=== PATIENT | male | born 1980 | race Caucasian/White ===

== ENCOUNTER 2017-01-12 21:50 | Emergency (ER) | payer SELFPAY ==
--- NOTE | 2017-01-13 00:07 | ED CLINICAL REPORT ---
Clinical Report - Physicians/Mid Levels Merg[facility] With [facility] [address] [place] [address] 01/12/2017 21:51 Patient: LISA ARELLANO Time Seen: 21:58; initial patient contact. Arrived- By private vehicle. Historian- patient. HISTORY OF PRESENT ILLNESS Chief Complaint: "GOT THE SHAKES". Wants to stop drinking. Wants to enter detox program. Symptoms started today. Duration of substance abuse- about 3 months. Substances abused: Alcohol. Last drink consisted of beer. (about 9 hours ago). No nausea, vomiting, diarrhea, abdominal pain or seizure. No agitation, delusions, hallucinations or suicidal thoughts. He has had tremors and been depressed. Not confused. The symptoms are described as moderate. No injuries noted. Similar symptoms previously: None. Recent medical care: Not recently seen/assessed. REVIEW OF SYSTEMS No headache, dizziness, chest pain or palpitations. All systems otherwise negative, except as recorded above. PAST HISTORY Alcoholism. SURGERIES: Rotator Cuff Surgery. SOCIAL HISTORY Former smoker. Heavy alcohol use. Patient is alcoholic. No drug use. Has social support. Has place to stay. ADDITIONAL NOTES The nursing notes have been reviewed. PHYSICAL EXAM Vital Signs: 01/12/2017 21:58 BP: 177/98. HR: 123. RR: 20. O2 saturation: 96%. Temp: 98.8 F. Pain level now: 0/10. Have been reviewed. Hypertensive. Tachycardic. Respiratory rate normal. Temperature normal. Oxygen saturation normal. Appearance: Alert. Oriented X3. Patient in mild distress. Head: Head atraumatic. ENT: Airway intact. Dry mucous membranes present. Neck: Normal inspection. CVS: Tachycardia. Heart sounds normal. Rhythm normal. Respiratory: No respiratory distress. Breath sounds normal. Abdomen: Soft and nontender. No organomegaly. Skin: Skin warm and dry. Normal skin color. No rash. Extremities: No lower extremity edema. Neuro: Alert. Oriented X 3. Mood/affect normal. Speech normal. (Tremor noted). LABS, X-RAYS, AND EKG Laboratory Tests: CBC w Diff: (SANDY: 01/12/2017 22:07) ( MsgRcvd 01/12/2017 22:31) Final results Test Result Flag Units (Reference) WHITE BLOOD COUNT 9.8 K/uL (4.5-11.5) RED BLOOD COUNT 5.14 M/uL (4.50-5.90) HEMOGLOBIN 15.3 gm/dL (13.5-17.5) HEMATOCRIT 45.3 % (41.0-53.0) MEAN CELL VOLUME 88 fL (80-100) MEAN CORPUSCULAR HGB 30 pg (26-34) MEAN CORPUSCULAR HGB CONC 34 g/dL (31-37) RED CELL DISTRIBUTION WIDTH 15.4 H % (11.6-14.8) PLATELET COUNT 329 K/uL (150-400) NEUTROPHIL % 64.7 % (50-75) LYMPH % 23.1 L % (25-40) MONO % 11.8 % (3-14) EOSINOPHIL % 0.1 % (0-4) BASOPHIL % 0.3 % (0-2) CMP: (SANDY: 01/12/2017 22:07) ( MsgRcvd 01/12/2017 22:36) Final results Test Result Flag Units (Reference) GLUCOSE 129 H mg/dL (70-110) BUN 10 mg/dL (7-18) CREATININE 0.8 mg/dL (0.6-1.3) Estimated GFR >60 mL/min Estimated GFR- >60 mL/min Note: Persistent reduction over 3 months in eGFR<60 mL/min/1.73 m2 defines CKD. Patients with eGFR values>=60 mL/min/1.73 m2 may also have CKD if evidence ofpersistent proteinuria. Additional information may be foundat [email or web address].org. SODIUM 136 mmol/L (136-145) POTASSIUM 3.4 L mmol/L (3.5-5.1) CHLORIDE 98 mmol/L (98-107) CARBON DIOXIDE 28 mmol/L (21-32) CALCIUM 8.9 mg/dL (8.5-10.1) TOTAL PROTEIN 8.2 g/dL (6.4-8.2) ALBUMIN 3.9 g/dL (3.3-5.0) BILIRUBIN, TOTAL 1.1 H mg/dL (0.0-1.0) ALKALINE PHOSPHATASE 87 U/L (46-116) AST (SGOT) 48 H U/L (15-37) ALT (SGPT) 43 U/L (12-78) . PROGRESS AND PROCEDURES Course of Care: Ativan. Evaluation after repeat exam, IV fluids and thiamine. Physical exam findings are improved. Symptoms much better. Disposition: Discharged home in good and improved condition. Condition: good. CLINICAL IMPRESSION Alcohol withdrawal. No irritability, agitation, confusion, delirium or hallucinations. No seizures or delirium tremens. INSTRUCTIONS No alcohol. Seek medical help to quit drinking. Prescription Medications: Librium 25 mg: take 1-2 orally every 6 hours as needed for anxiety. Dispense thirty (30). No refill. Substitution is permissible. Follow-up: Follow up with your doctor in two days. Call for an appointment. Screening today revealed the patient's blood pressure to be in the hypertensive range. The patient should follow up with a primary care provider for blood pressure management. (Electronically signed by Pollo Beltrán Dr. 01/13/2017 0:11)
--- NOTE | 2017-01-13 00:08 | ED NURSING NOTES ---
Clinical Report - Nurses [facility] [address] [place] [address] 01/12/2017 21:51 Patient: LISA ARELLANO TRIAGE Triage time 21:59 Jan 12 2017. Acuity: LEVEL 2. Chief Complaint: (DETOX/WITHDRAWL FROM ALCOHOL). 21:59 01/12/17. SEPSIS SCREEN: Sepsis Screen. Negative (no infection suspected/documented). HIREN COMA SCORE: Sparks Coma Scale: 15- eyes open spontaneously (4); best verbal response- oriented x 4 (5); best motor response- obeys commands (6). --22:04 Dayanara Culver R.N. 21:58 01/12/17. BP: 177/98. HR: 123. RR: 20. O2 saturation: 96%. Temp: 98.8 F. Pain level now: 0/10. --22:04 Dayanara Culver R.N. Weight: 95.2 kg. Height/Length: 70 inches. BMI: 30.1. --21:58 Dayanara Culver R.N. Medications None. --21:59 Dayanara Culver R.N. Allergies Flu Virus Vaccine. --21:59 Dayanara Culver R.N. Medication/allergy information source: the patient. --22:04 Dayanara Culver R.N. History Arrived by private vehicle. Historian: patient. Accompanied by friend. ( STATES BEEN DRINKING BEER HEAVILY, MORE THAN 30 PER DAY FOR THE LAST 3 MONTHS. LAST DRINK WAS AT 1400 TODAY. WAS DRINKING HEAVILY UNTIL THEN. SIGNIFICANT HAND TREMOR PRESENT. STATES WANTS HELP TO STOP DRINKING.). Treatment TAG METER OPERATOR: None. SOCIAL HX: Former smoker (QUIT 1 YEAR AGO). Heavy alcohol use; consumes a large amount of beer daily. (STATES DRINKS MORE THAN 30 BEERS PER DAY). No drug use. No infectious disease exposure. ABUSE ASSESSMENT: No report of abuse. SELF HARM ASSESSMENT: A self harm assessment was performed. The patient answered "yes" to the question "Have you recently felt down, depressed, or hopeless?" and "no" to the question "Have you noticed less interest or pleasure in doing things?", "Do you have thoughts of harming or killing yourself?", "Are you here because you tried to hurt yourself?", "Have you ever tried to hurt yourself before today?", "Have you recently had thoughts about harming or killing others?" and "Do you have any dangerous items in your possession?". NUTRITIONAL RISK ASSESSMENT: The nutritional risk assessment revealed no deficiencies. FUNCTIONAL ASSESSMENT: Functional assessment: no impairments noted. LEARNING NEEDS ASSESSMENT: The learning needs assessment revealed no barriers. SKIN INTEGRITY ASSESSMENT: Skin integrity risk assessment completed. No skin integrity risk identified. --22:04 Dayanara Culver R.N. PROBLEMS: Alcoholism. --22:00 Dayanara Culver R.N. ADDITIONAL SURGERIES: Rotator Cuff Surgery. --22:00 Dayanara Culver R.N. Interventions ID band on patient. --22:04 Dayanara Culver R.N. PHYSICAL ASSESSMENT 23:00 01/12/17. Ambulatory to room. GENERAL / NEURO / PSYCH: Alert. Oriented X 4. Appears in pain. Normal gait. HEENT: Pupils equal, round and reactive to light. No facial asymmetry noted. Mucous membranes are pink. RESPIRATORY: Respirations not labored. Breath sounds within normal limits. CVS: Cardiac rhythm: sinus tachycardia. Capillary refill less than 2 seconds. GI / : Abdomen soft and nontender. SKIN: Skin intact. Skin is warm. Skin is slightly diaphoretic. Normal skin turgor. --00:22 Dayanara Culver R.N. NURSING PROGRESS NOTES 22:01/12/2017 Site #1 started via IV in the left antecubital space with an 20g angiocath, with aseptic technique and good blood return; one attempt. Blood drawn: rainbow set. Labeled in the presence of the patient and sent to the lab. Saline lock flushed with 10 mL saline. --22:06 Dayanraa Culver R.N. 22:01/12/17. BP: 181/100. HR: 117. --22:06 Dayanara Culver R.N. 22:01/12/17. Cardiac rhythm: sinus tachycardia. The initial plan of care for this patient includes an assessment with efforts to address the patient's anxiety and fear; the presence of pain; impairment of the genitourinary and neurological system; hydration needs; educational needs of the patient regarding the patient's medications and disease process and available services and resources. This plan of care was discussed with the patient. physical laboratory assistant, pulse oximeter and NIBP monitor placed on patient; cardiac cath rn- Lead II; monitor alarms on. Patient gowned. Two patient identifiers checked. Call light placed in reach. Side rails up x 2. Bed placed in lowest position. Brakes of bed on. Patient ready for evaluation. --22:06 Dayanara Culver R.N. ( BREATHALYZER TEST GIVEN .000). --22:16 Andrea Jimenez 22:01/12/2017 Started bag #1 1000 mL IV Fluids IV NS (Saline); at 1000 mL/hr over 1 hour(s) via site #1 via IV pump. Allergies verified and confirmed 5 rights. IV patency established. IV site checked: no pain, redness, or swelling. IV flushed thoroughly pre- and post-medication administration. --22:29 Dayanara Culver R.N. 22:01/12/2017 Thiamine (Vitamin B-1) IVP 100 mg given over 1 hour(s) via site #1. Allergies verified and confirmed 5 rights. IV patency established. IV site checked: no pain, redness, or swelling. IV flushed thoroughly pre- and post-medication administration. IVP given by RN. --22:29 Dayanara Culver R.N. <<STRICKEN ENTRY-- :01/12/2017 Started 1 mg of Folic Acid IVPB in bag #1 100 mL; at 1000 mL/hr over 1 hour(s) via site #1; (1 mg (0.2 ml) added to IV Liter NSS). --22:31 Dayanara Culver R.N. --END STRIKE>> Change to Details. --22:33 Dayanara Culver R.N. <<STRICKEN ENTRY-- 22:01/12/2017 Started 10 mL of Multivitamin IVPB in bag #1 1000 mL; at 1000 mL/hr over 1 hour(s) via site #1; Allergies verified and confirmed 5 rights. IV patency established. IV site checked: no pain, redness, or swelling. IV flushed thoroughly pre- and post-medication administration. --22:32 Dayanara Culver R.N. --END STRIKE>> Correction. --22:33 Dayanara Culver R.N. 22:01/12/2017 Started 10 mL of Multivitamin IVPB in bag #1 10 mL; at 1000 mL/hr over 1 hour(s) via site #1; Allergies verified and confirmed 5 rights. IV patency established. IV site checked: no pain, redness, or swelling. IV flushed thoroughly pre- and post-medication administration. --22:33 Dayanara Culver R.N. 22:01/12/2017 Started 1 mg of Folic Acid IVPB in bag #1 1 mL; at 1000 mL/hr over 1 hour(s) via site #1; (1 mg (0.2 ml) added to IV Liter NSS). --22:33 Dayanara Culver R.N. 22:30 01/12/2017 Ativan (LORazepam) IVP 1 mg given over 1 minute(s) via site #1. Allergies verified, confirmed 5 rights and sedative warning given to the patient. IV patency established. IV site checked: no pain, redness, or swelling. IV flushed thoroughly pre- and post-medication administration. IVP given by RN. --22:32 Dayanara Culver R.N. 22:47 01/12/17. Cardiac rhythm: sinus tachycardia. Reassessment after fluids administered and medication administered. He has had no adverse reaction. Overall patient status is the same- he states feels the same. --22:47 Dayanara Culver R.N. 22:47 01/12/17. BP: 188/95. HR: 110. RR: 20. O2 saturation: 95%. Pain level now 0/10. --22:47 Dayanara Culver R.N. 22:57 01/12/2017 Ativan (LORazepam) IVP 1 mg given over 1 minute(s) via site #1. Allergies verified, confirmed 5 rights and sedative warning given to the patient. IV patency established. IV site checked: no pain, redness, or swelling. IV flushed thoroughly pre- and post-medication administration. IVP given by RN. --22:59 Dayanara Culver R.N. 23:01 01/12/17. ( Patient given sandwich, jello, crackers, sprite and gatorade). --23:01 Dayanara Culver R.N. 23:10 01/12/17. BP: 142/81. HR: 110. RR: 20. O2 saturation: 97%. Pain level now 0/10. --23:10 Dayanara Culver R.NMary 23:10 01/12/17. Cardiac rhythm: sinus tachycardia. --23:10 Dayanara Culver R.N. 23:25 01/12/2017 IV Fluids IV NS Discontinued: completed. Total amount infused: 1000 mL. IV patency established. IV site checked: no pain, redness, or swelling. IV flushed thoroughly. --23:37 Dayanara Culver R.N. 23:25 01/12/2017 Folic Acid IVPB Discontinued: completed. IV patency established. IV site checked: no pain, redness, or swelling. IV flushed thoroughly. --23:38 Dayanara Culver R.NMary 23:25 01/12/2017 Multivitamin IVPB Discontinued: completed. Total amount infused: 10 mL. --23:38 Dayanara Culver R.NMary 23:37 01/12/2017 Started bag #1 1000 mL IV Fluids IV NS (Saline); at 2000 mL/hr over 30 minute(s) via site #1. Allergies verified and confirmed 5 rights. IV patency established. IV site checked: no pain, redness, or swelling. IV flushed thoroughly pre- and post-medication administration. --23:37 Dayanara Culver R.N. 00:07 01/13/2017 IV Fluids IV NS Discontinued: bag #1 completed. Total amount infused: 1000 mL. IV patency established. IV site checked: no pain, redness, or swelling. IV flushed thoroughly. --00:18 Dayanara Culver R.N. 00:18 01/13/2017 Site #1 removed upon discharge. Catheter intact. Pressure dressing applied. --00:18 Dayanara Culver R.N. DISPOSITION / DISCHARGE 00:20 01/13/17. Cardiac rhythm: sinus tachycardia. Condition at departure: improved and stable. The goals identified in the patient's plan of care were met. No learning barriers present. Reviewed medication(s) side effects, precautions, dosing and course information. Prescription(s) given to the patient. Reviewed referral to a primary care physician, Alcoholics Anonymous and crisis hotline for followup. Summary of care provided to patient via paper. Patient verbalized understanding. Written instructions provided in French. The patient was discharged home and accompanied by vocational rehabilitation supervisor. He left the Emergency Department ambulatory and via private vehicle. Pin Feather Machine Operator driving. FALL RISK ASSESSMENT: Fall risk assessment completed. No fall risk identified. --00:20 Dayanara Culver R.N. 00:20 01/13/17. BP: 157/91. HR: 106. RR: 20. O2 saturation: 97%. Temp: 97.9 F. Pain level now 0/10. --00:20 Dayanara Culver R.N. Departure time: 00:Jan 13 2017. --00:20 Dayanara Culver R.N. Locked/Released at 01/13/2017 0:22 by Dayanara Culver R.N.
--- NOTE | 2017-01-13 00:08 | ED NURSING NOTES ---
Clinical Report - Nurses [facility] [address] [place] [address] 01/12/2017 21:51 Patient: LISA ARELLANO TRIAGE Triage time 21:59 Jan 12 2017. Acuity: LEVEL 2. Chief Complaint: (DETOX/WITHDRAWL FROM ALCOHOL). 21:59 01/12/17. SEPSIS SCREEN: Sepsis Screen. Negative (no infection suspected/documented). HIREN COMA SCORE: Sawyer Coma Scale: 15- eyes open spontaneously (4); best verbal response- oriented x 4 (5); best motor response- obeys commands (6). --22:04 Dayanara Culver R.N. 21:58 01/12/17. BP: 177/98. HR: 123. RR: 20. O2 saturation: 96%. Temp: 98.8 F. Pain level now: 0/10. --22:04 Dayanara Culver R.N. Weight: 95.2 kg. Height/Length: 70 inches. BMI: 30.1. --21:58 Dayanara Culver R.N. Medications None. --21:59 Dayanara Culver R.N. Allergies Flu Virus Vaccine. --21:59 Dayanara Culver R.N. Medication/allergy information source: the patient. --22:04 Dayanara Culver R.N. History Arrived by private vehicle. Historian: patient. Accompanied by friend. ( STATES BEEN DRINKING BEER HEAVILY, MORE THAN 30 PER DAY FOR THE LAST 3 MONTHS. LAST DRINK WAS AT 1400 TODAY. WAS DRINKING HEAVILY UNTIL THEN. SIGNIFICANT HAND TREMOR PRESENT. STATES WANTS HELP TO STOP DRINKING.). Treatment BINDER OPERATOR: None. SOCIAL HX: Former smoker (QUIT 1 YEAR AGO). Heavy alcohol use; consumes a large amount of beer daily. (STATES DRINKS MORE THAN 30 BEERS PER DAY). No drug use. No infectious disease exposure. ABUSE ASSESSMENT: No report of abuse. SELF HARM ASSESSMENT: A self harm assessment was performed. The patient answered "yes" to the question "Have you recently felt down, depressed, or hopeless?" and "no" to the question "Have you noticed less interest or pleasure in doing things?", "Do you have thoughts of harming or killing yourself?", "Are you here because you tried to hurt yourself?", "Have you ever tried to hurt yourself before today?", "Have you recently had thoughts about harming or killing others?" and "Do you have any dangerous items in your possession?". NUTRITIONAL RISK ASSESSMENT: The nutritional risk assessment revealed no deficiencies. FUNCTIONAL ASSESSMENT: Functional assessment: no impairments noted. LEARNING NEEDS ASSESSMENT: The learning needs assessment revealed no barriers. SKIN INTEGRITY ASSESSMENT: Skin integrity risk assessment completed. No skin integrity risk identified. --22:04 Dayanara Culver R.N. PROBLEMS: Alcoholism. --22:00 Dayanara Culver R.N. ADDITIONAL SURGERIES: Rotator Cuff Surgery. --22:00 Dayanara Culver R.N. Interventions ID band on patient. --22:04 Dayanara Culver R.N. PHYSICAL ASSESSMENT 23:00 01/12/17. Ambulatory to room. GENERAL / NEURO / PSYCH: Alert. Oriented X 4. Appears in pain. Normal gait. HEENT: Pupils equal, round and reactive to light. No facial asymmetry noted. Mucous membranes are pink. RESPIRATORY: Respirations not labored. Breath sounds within normal limits. CVS: Cardiac rhythm: sinus tachycardia. Capillary refill less than 2 seconds. GI / : Abdomen soft and nontender. SKIN: Skin intact. Skin is warm. Skin is slightly diaphoretic. Normal skin turgor. --00:22 Dayanara Culver R.N. NURSING PROGRESS NOTES 22:01/12/2017 Site #1 started via IV in the left antecubital space with an 20g angiocath, with aseptic technique and good blood return; one attempt. Blood drawn: rainbow set. Labeled in the presence of the patient and sent to the lab. Saline lock flushed with 10 mL saline. --22:06 Dayanara Culver R.N. 22:01/12/17. BP: 181/100. HR: 117. --22:06 Dayanara Culver R.N. 22:01/12/17. Cardiac rhythm: sinus tachycardia. The initial plan of care for this patient includes an assessment with efforts to address the patient's anxiety and fear; the presence of pain; impairment of the genitourinary and neurological system; hydration needs; educational needs of the patient regarding the patient's medications and disease process and available services and resources. This plan of care was discussed with the patient. electronic device monitor, pulse oximeter and NIBP monitor placed on patient; bus monitor- Lead II; monitor alarms on. Patient gowned. Two patient identifiers checked. Call light placed in reach. Side rails up x 2. Bed placed in lowest position. Brakes of bed on. Patient ready for evaluation. --22:06 Dayanara Culver R.N. ( BREATHALYZER TEST GIVEN .000). --22:16 Andrea Jimenez 22:01/12/2017 Started bag #1 1000 mL IV Fluids IV NS (Saline); at 1000 mL/hr over 1 hour(s) via site #1 via IV pump. Allergies verified and confirmed 5 rights. IV patency established. IV site checked: no pain, redness, or swelling. IV flushed thoroughly pre- and post-medication administration. --22:29 Dayanara Culver R.N. 22:01/12/2017 Thiamine (Vitamin B-1) IVP 100 mg given over 1 hour(s) via site #1. Allergies verified and confirmed 5 rights. IV patency established. IV site checked: no pain, redness, or swelling. IV flushed thoroughly pre- and post-medication administration. IVP given by RN. --22:29 Dayanara Culver R.N. <<STRICKEN ENTRY-- :01/12/2017 Started 1 mg of Folic Acid IVPB in bag #1 100 mL; at 1000 mL/hr over 1 hour(s) via site #1; (1 mg (0.2 ml) added to IV Liter NSS). --22:31 Dayanara Culver R.N. --END STRIKE>> Change to Details. --22:33 Dayanara Culver R.N. <<STRICKEN ENTRY-- 22:01/12/2017 Started 10 mL of Multivitamin IVPB in bag #1 1000 mL; at 1000 mL/hr over 1 hour(s) via site #1; Allergies verified and confirmed 5 rights. IV patency established. IV site checked: no pain, redness, or swelling. IV flushed thoroughly pre- and post-medication administration. --22:32 Dayanara Culver R.N. --END STRIKE>> Correction. --22:33 Dayanara Culver R.N. 22:01/12/2017 Started 10 mL of Multivitamin IVPB in bag #1 10 mL; at 1000 mL/hr over 1 hour(s) via site #1; Allergies verified and confirmed 5 rights. IV patency established. IV site checked: no pain, redness, or swelling. IV flushed thoroughly pre- and post-medication administration. --22:33 Dayanara Culver R.N. 22:01/12/2017 Started 1 mg of Folic Acid IVPB in bag #1 1 mL; at 1000 mL/hr over 1 hour(s) via site #1; (1 mg (0.2 ml) added to IV Liter NSS). --22:33 Dayanara Culver R.N. 22:30 01/12/2017 Ativan (LORazepam) IVP 1 mg given over 1 minute(s) via site #1. Allergies verified, confirmed 5 rights and sedative warning given to the patient. IV patency established. IV site checked: no pain, redness, or swelling. IV flushed thoroughly pre- and post-medication administration. IVP given by RN. --22:32 Dayanara Culver R.N. 22:47 01/12/17. Cardiac rhythm: sinus tachycardia. Reassessment after fluids administered and medication administered. He has had no adverse reaction. Overall patient status is the same- he states feels the same. --22:47 Dayanara Culver R.N. 22:47 01/12/17. BP: 188/95. HR: 110. RR: 20. O2 saturation: 95%. Pain level now 0/10. --22:47 Dayanara Culver R.N. 22:57 01/12/2017 Ativan (LORazepam) IVP 1 mg given over 1 minute(s) via site #1. Allergies verified, confirmed 5 rights and sedative warning given to the patient. IV patency established. IV site checked: no pain, redness, or swelling. IV flushed thoroughly pre- and post-medication administration. IVP given by RN. --22:59 Dayanara Culver R.N. 23:01 01/12/17. ( Patient given sandwich, jello, crackers, sprite and gatorade). --23:01 Dayanara Culver R.N. 23:10 01/12/17. BP: 142/81. HR: 110. RR: 20. O2 saturation: 97%. Pain level now 0/10. --23:10 Dayanara Culver R.NMary 23:10 01/12/17. Cardiac rhythm: sinus tachycardia. --23:10 Dayanara Culver R.N. 23:25 01/12/2017 IV Fluids IV NS Discontinued: completed. Total amount infused: 1000 mL. IV patency established. IV site checked: no pain, redness, or swelling. IV flushed thoroughly. --23:37 Dayanara Culver R.N. 23:25 01/12/2017 Folic Acid IVPB Discontinued: completed. IV patency established. IV site checked: no pain, redness, or swelling. IV flushed thoroughly. --23:38 Dayanara Culver R.NMary 23:25 01/12/2017 Multivitamin IVPB Discontinued: completed. Total amount infused: 10 mL. --23:38 Dayanara Culver R.NMary 23:37 01/12/2017 Started bag #1 1000 mL IV Fluids IV NS (Saline); at 2000 mL/hr over 30 minute(s) via site #1. Allergies verified and confirmed 5 rights. IV patency established. IV site checked: no pain, redness, or swelling. IV flushed thoroughly pre- and post-medication administration. --23:37 Dayanara Culver R.N. 00:07 01/13/2017 IV Fluids IV NS Discontinued: bag #1 completed. Total amount infused: 1000 mL. IV patency established. IV site checked: no pain, redness, or swelling. IV flushed thoroughly. --00:18 Dayanara Culver R.N. 00:18 01/13/2017 Site #1 removed upon discharge. Catheter intact. Pressure dressing applied. --00:18 Dayanara Culver R.N. DISPOSITION / DISCHARGE 00:20 01/13/17. Cardiac rhythm: sinus tachycardia. Condition at departure: improved and stable. The goals identified in the patient's plan of care were met. No learning barriers present. Reviewed medication(s) side effects, precautions, dosing and course information. Prescription(s) given to the patient. Reviewed referral to a primary care physician, Alcoholics Anonymous and crisis hotline for followup. Summary of care provided to patient via paper. Patient verbalized understanding. Written instructions provided in Malagasy. The patient was discharged home and accompanied by radio tower technician. He left the Emergency Department ambulatory and via private vehicle. Video Intern driving. FALL RISK ASSESSMENT: Fall risk assessment completed. No fall risk identified. --00:20 Dayanara Culver R.N. 00:20 01/13/17. BP: 157/91. HR: 106. RR: 20. O2 saturation: 97%. Temp: 97.9 F. Pain level now 0/10. --00:20 Dayanara Culver R.N. Departure time: 00:Jan 13 2017. --00:20 Dayanara Culver R.N. Locked/Released at 01/13/2017 0:22 by Dayanara Culver R.N.
--- NOTE | 2017-01-13 00:08 | ED ORDER SUMMARY ---
..... Patient: LISA ARELLANO OrderSheet [facility] VisitID: [id number] [place] [address] 36y, M Registration Date/Time: 01/12/2017 ORDER SHEET Weight: 95.2 kg Allergies: Flu Virus Vaccine GENERAL ORDERS: CBC w Diff Urgent (22:01/12/2017 Deni Drake) (Ack 22:16 SRedmond) (22:25 EInderbitzen R.N.) CMP Urgent (22:13 01/12/2017 Deni Drake) (Ack 22:16 SRedmond) (22:25 EInderbitzen R.N.) Breathalyzer (22:01/12/2017 Deni Drake) (22:13 EInderbitzen R.N.) Magnesium Urgent (22:44 01/12/2017 Deni Drake) (Ack 22:45 SRedmond) (22:45 EInderbitzen R.N.) MEDICATION ORDERS: IV FLUIDS: IV Saline Lock (22:01/12/2017 EInderbitzen R.N. per protocol) (22:10 EInderbitzen R.N.) IV NS : initial bolus none -, then 1000 mL/hr for X1 (NOW) (22:01/12/2017 Deni Drake) (22:29 EInderbitzen R.N.) Folic Acid IV : initial bolus 1 mg (NOW) (22:01/12/2017 Deni Drake) (22:31 EInderbitzen R.N.) Multivitamin IV 10 mL (NOW) (22:01/12/2017 Deni Drake) (22:32 EInderbitzen R.N.) Thiamine IV 100 mg (100 mg Add to IV solution) (22:01/12/2017 Deni Drake) (22:29 EInderbitzen R.N.) Ativan IV 1 mg (HIGH ALERT MEDICATION, NOW) (22:23 01/12/2017 Deni Drake) (22:32 EInderbitzen R.N.) Ativan IV 1 mg (HIGH ALERT MEDICATION, NOW) (22:54 01/12/2017 Deni Drake) (22:59 Maximus Dexter) IV NS : initial bolus none -, then 1000 mL/hr for X1 (NOW) (23:35 01/12/2017 Deni Drake) (23:37 Maximus Dexter) ORDER SHEET NOTES: [Electronically signed by Pollo Beltrán Dr. (00:11 01/13/2017)] [Electronically signed by Dayanara Culver R.N. (00:22 01/13/2017)] [Electronically locked/signed by Dayanara Culver R.N. (00:22 01/13/2017)]
--- NOTE | 2017-01-13 00:08 | ED ORDER SUMMARY ---
..... Patient: LISA ARELLANO OrderSheet [facility] VisitID: [id number] [place] [address] 36y, M Registration Date/Time: 01/12/2017 ORDER SHEET Weight: 95.2 kg Allergies: Flu Virus Vaccine GENERAL ORDERS: CBC w Diff Urgent (22:01/12/2017 Deni Drake) (Ack 22:16 SRedmond) (22:25 EInderbitzen R.N.) CMP Urgent (22:13 01/12/2017 Deni Drake) (Ack 22:16 SRedmond) (22:25 EInderbitzen R.N.) Breathalyzer (22:01/12/2017 Deni Drake) (22:13 EInderbitzen R.N.) Magnesium Urgent (22:44 01/12/2017 Deni Drake) (Ack 22:45 SRedmond) (22:45 EInderbitzen R.N.) MEDICATION ORDERS: IV FLUIDS: IV Saline Lock (22:01/12/2017 EInderbitzen R.N. per protocol) (22:10 EInderbitzen R.N.) IV NS : initial bolus none -, then 1000 mL/hr for X1 (NOW) (22:01/12/2017 Deni Drake) (22:29 EInderbitzen R.N.) Folic Acid IV : initial bolus 1 mg (NOW) (22:01/12/2017 Deni Drake) (22:31 EInderbitzen R.N.) Multivitamin IV 10 mL (NOW) (22:01/12/2017 Deni Drake) (22:32 EInderbitzen R.N.) Thiamine IV 100 mg (100 mg Add to IV solution) (22:01/12/2017 Deni Drake) (22:29 EInderbitzen R.N.) Ativan IV 1 mg (HIGH ALERT MEDICATION, NOW) (22:23 01/12/2017 Deni Drake) (22:32 EInderbitzen R.N.) Ativan IV 1 mg (HIGH ALERT MEDICATION, NOW) (22:54 01/12/2017 Deni Drake) (22:59 Maximus Dexter) IV NS : initial bolus none -, then 1000 mL/hr for X1 (NOW) (23:35 01/12/2017 Deni Drake) (23:37 Maximus Dexter) ORDER SHEET NOTES: [Electronically signed by Pollo Beltrán Dr. (00:11 01/13/2017)] [Electronically signed by Dayanara Culver R.N. (00:22 01/13/2017)] [Electronically locked/signed by Dayanara Culver R.N. (00:22 01/13/2017)]
--- NOTE | 2017-01-13 00:23 | ED DISCHARGE INSTRUCTIONS ---
Patient: LISA ARELLANO General Instructions [facility] VisitID: [id number] [place] [address] 36y, M Registration Date/Time: 01/12/2017 Alcohol withdrawal. No irritability, agitation, confusion, delirium or hallucinations. No seizures or delirium tremens. INSTRUCTIONS No alcohol. Seek medical help to quit drinking. Prescription Medications: Librium 25 mg: take 1-2 orally every 6 hours as needed for anxiety. Dispense thirty (30). No refill. Substitution is permissible. Follow-up: Follow up with your doctor in two days. Call for an appointment. Screening today revealed the patient's blood pressure to be in the hypertensive range. The patient should follow up with a primary care provider for blood pressure management. ADDITIONAL INFORMATION Alcohol Withdrawal Alcohol withdrawal symptoms occur if you have been drinking steadily for at least several days, and your body gets used to the effect of alcohol. When you suddenly stop drinking (or, even just cut down your daily intake but continue to drink), you may develop alcohol withdrawal, also called the The usual symptoms last 3-4 days and include nervousness, shakiness, nausea, sweating, sleeplessness. In severe cases hallucinations (seeing things that are not there) and seizures can occur. Home Care: You will need plenty of rest and fluids over the next several days. Eat regular meals. Of course, do not drink any more alcohol. During this time, it is best that you stay with family or friends who can help and support you. You can also admit yourself to a residential detox program. Do not drive until all symptoms are gone and you are feeling better. If you were given sedative medication to reduce your symptoms, do not take it more often than prescribed and never take it with alcohol. Follow Up: Once you have gone through the withdrawal symptoms, you have fought half of the mcclain. To avoid the risk of returning to your previous drinking pattern, it is essential that you get follow-up support and treatment. Alcoholics Anonymous offers support through a self-help fellowship. There are no dues or fees. See the Yellow Pages and call for time and place of meetings. www.aa.org [place] offers support to families of alcohol users. [phone] www.al-anon.org National [place] On Alcoholism And Drug Dependence 471-728-1798 www.ncadd.org Residential alcohol detox programs are available. Check the Yellow Pages under Drug Abuse & Treatment Centers. Get Prompt Medical Attention if any of the following occur: Severe shakiness Hallucinations Seizure Fever over 100.5 F (38.0 C) oral Headache, confusion, extreme drowsiness, inability to awaken Increasing upper abdominal pain Repeated vomiting or vomiting blood Chlordiazepoxide Hydrochloride Oral capsule What is this medicine? CHLORDIAZEPOXIDE (klor dye az e POX colleen) is a benzodiazepine. It is used to treat anxiety and alcohol withdrawal. How should I use this medicine? Take this medicine by mouth with a glass of water. Follow the directions on the prescription label. If this medicine upsets your stomach, take it with food or milk. Take your doses at regular intervals. Do not take your medicine more often than directed. If you have been taking this medicine regularly for some time, do not suddenly stop taking it. You must gradually reduce the dose or you may get severe side effects. Ask your doctor or health home care rn for advice. Even after you stop taking this medicine it can still affect your body for several days. Talk to your commissioner of internal revenue regarding the use of this medicine in children. Special care may be needed. While this drug may be prescribed for children as young as 6 years for selected conditions, precautions do apply. What side effects may I notice from receiving this medicine? Side effects that you should report to your doctor or health home care rn as soon as possible: allergic reactions like skin rash, itching or hives, swelling of the face, lips, or tongue confusion, depression feeling faint or lightheaded, falls mood changes, excitability or aggressive behavior muscle cramps problems with balance, talking, walking restlessness tremors unusually weak or tired Side effects that usually do not require medical attention (report to your doctor or health home care rn if they continue or are bothersome): change in sex drive or performance constipation drowsiness menstrual changes nausea, vomiting What may interact with this medicine? cimetidine medicines for anxiety or sleeping problems, like alprazolam, lorazepam, or triazolam medicines for depression, mental problems or psychiatric disturbances medicines for HIV infection or AIDS prescription pain medicines rifampin, rifapentine, or rifabutin some medicines for seizures like carbamazepine, phenobarbital, phenytoin, or primidone What if I miss a dose? If you miss a dose, take it as soon as you can. If it is almost time for your next dose, take only that dose. Do not take double or extra doses. Where should I keep my medicine? Keep out of the reach of children. This medicine can be abused. Keep your medicine in a safe place to protect it from theft. Do not share this medicine with anyone. Selling or giving away this medicine is dangerous and against the law. Store at room temperature between 15 and 30 degrees C (59 and 86 degrees F). Throw away any unused medicine after the expiration date. What should I tell my health care provider before I take this medicine? They need to know if you have any of these conditions: an alcohol or drug abuse problem kidney or liver disease suicidal thoughts an unusual or allergic reaction to chlordiazepoxide, other benzodiazepines, foods, dyes, or preservatives or trying to get breast-feeding What should I watch for while using this medicine? Visit your doctor or health home care rn for regular checks on your progress. Your body can become dependent on this medicine. Ask your doctor or health home care rn if you still need to take it. You may get drowsy or dizzy. Do not drive, use machinery, or do anything that needs mental alertness until you know how this medicine affects you. To reduce the risk of dizzy and fainting spells, do not stand or sit up quickly, especially if you are an older patient. Alcohol may increase dizziness and drowsiness. Avoid alcoholic drinks. Do not treat yourself for coughs, colds or allergies without asking your doctor or health home care rn for advice. Some ingredients can increase possible side effects. You have been given the following additional information: Alcohol Withdrawal Chlordiazepoxide Hydrochloride Oral capsule (Electronically signed by Pollo Beltrán Dr. 01/13/2017 0:11)
--- NOTE | 2017-01-13 00:23 | ED MAR SUMMARY ---
..... Medication Administration Record [facility] [address] [place] [address] Patient: LISA ARELLANO Visit ID: [id number] 36y, M Weight: 95.2 kg Height/Length: 70 in BMI: 30.1 ALLERGIES: Flu Virus Vaccine Start 22:01/12/2017 Dayanara Culver R.N., Stop 23:01/12/2017 Dayanara Culver R.N. Medication Administered: IV NS (SALINE), Dose: IV Fluids over 1 hour(s), Rate: 1000 mL/hr, Dispensed: 1000 mL bag, Site: #1 left AC. Medication Ordered: IV NS : initial bolus none -, then 1000 mL/hr for X1 (NOW). Given :01/12/2017 Dayanara Culver R.N. Medication Administered: THIAMINE [IVP] (VITAMIN B-1), Dose: 100 mg IVP over 1 hour(s), Site: #1 left AC. Medication Ordered: Thiamine IV 100 mg (100 mg Add to IV solution). Start 22:01/12/2017 Dayanara Culver R.N., Stop 23:01/12/2017 Dayanara Culver R.N. Medication Administered: FOLIC ACID [IVPB], Dose: 1 mg IVPB over 1 hour(s), Rate: 1000 mL/hr, Dispensed: 1 mL bag, Site: #1 left AC. Medication Ordered: Folic Acid IV : initial bolus 1 mg (NOW). Start 22:01/12/2017 Dayanara Culver R.N., Stop 23:01/12/2017 Dayanara Culver R.N. Medication Administered: MULTIVITAMIN [IVPB], Dose: 10 mL IVPB over 1 hour(s), Rate: 1000 mL/hr, Dispensed: 10 mL bag, Site: #1 left AC. Medication Ordered: Multivitamin IV 10 mL (NOW). Given 01/12/2017 Dayanara Culver R.N. Medication Administered: ATIVAN [IVP] (LORAZEPAM), Dose: 1 mg IVP over 1 minute(s), Site: #1 left AC. Medication Ordered: Ativan IV 1 mg (HIGH ALERT MEDICATION, NOW). Given 22:57 01/12/2017 Dayanara Culver R.N. Medication Administered: ATIVAN [IVP] (LORAZEPAM), Dose: 1 mg IVP over 1 minute(s), Site: #1 left AC. Medication Ordered: Ativan IV 1 mg (HIGH ALERT MEDICATION, NOW). Start 23:37 01/12/2017 Dayanara Culver RRadhames, Stop 00:07 01/13/2017 Dayanara Culver R.N. Medication Administered: IV NS (SALINE), Dose: IV Fluids over 30 minute(s), Rate: 2000 mL/hr, Dispensed: 1000 mL bag, Site: #1 left AC. Medication Ordered: IV NS : initial bolus none -, then 1000 mL/hr for X1 (NOW).
--- NOTE | 2017-01-13 00:23 | ED MAR SUMMARY ---
..... Medication Administration Record [facility] [address] [place] [address] Patient: LISA ARELLANO Visit ID: [id number] 36y, M Weight: 95.2 kg Height/Length: 70 in BMI: 30.1 ALLERGIES: Flu Virus Vaccine Start 22:01/12/2017 Dayanara Culver R.N., Stop 23:01/12/2017 Dayanara Culver R.N. Medication Administered: IV NS (SALINE), Dose: IV Fluids over 1 hour(s), Rate: 1000 mL/hr, Dispensed: 1000 mL bag, Site: #1 left AC. Medication Ordered: IV NS : initial bolus none -, then 1000 mL/hr for X1 (NOW). Given :01/12/2017 Dayanara Culver R.N. Medication Administered: THIAMINE [IVP] (VITAMIN B-1), Dose: 100 mg IVP over 1 hour(s), Site: #1 left AC. Medication Ordered: Thiamine IV 100 mg (100 mg Add to IV solution). Start 22:01/12/2017 Dayanara Culver R.N., Stop 23:01/12/2017 Dayanara Culver R.N. Medication Administered: FOLIC ACID [IVPB], Dose: 1 mg IVPB over 1 hour(s), Rate: 1000 mL/hr, Dispensed: 1 mL bag, Site: #1 left AC. Medication Ordered: Folic Acid IV : initial bolus 1 mg (NOW). Start 22:01/12/2017 Dayanara Culver R.N., Stop 23:01/12/2017 Dayanara Culver R.N. Medication Administered: MULTIVITAMIN [IVPB], Dose: 10 mL IVPB over 1 hour(s), Rate: 1000 mL/hr, Dispensed: 10 mL bag, Site: #1 left AC. Medication Ordered: Multivitamin IV 10 mL (NOW). Given 01/12/2017 Dayanara Culver R.N. Medication Administered: ATIVAN [IVP] (LORAZEPAM), Dose: 1 mg IVP over 1 minute(s), Site: #1 left AC. Medication Ordered: Ativan IV 1 mg (HIGH ALERT MEDICATION, NOW). Given 22:57 01/12/2017 Dayanara Culver R.N. Medication Administered: ATIVAN [IVP] (LORAZEPAM), Dose: 1 mg IVP over 1 minute(s), Site: #1 left AC. Medication Ordered: Ativan IV 1 mg (HIGH ALERT MEDICATION, NOW). Start 23:37 01/12/2017 Dayanara Culver RRadhames, Stop 00:07 01/13/2017 Dayanara Culver R.N. Medication Administered: IV NS (SALINE), Dose: IV Fluids over 30 minute(s), Rate: 2000 mL/hr, Dispensed: 1000 mL bag, Site: #1 left AC. Medication Ordered: IV NS : initial bolus none -, then 1000 mL/hr for X1 (NOW).
--- NOTE | 2017-01-13 00:23 | ED MED RECONCILIATION SUMMARY ---
Patient: LISA ARELLANO Medication Reconciliation Report [facility] VisitID: [id number] [place] [address] 36y, M Registration Date/Time: 01/12/2017 Weight: 95.2 kg Height/Length: 70 in. BMI: 30.1 ALLERGIES: Flu Virus Vaccine The patient's Home Medications are listed below: NONE. The source(s) of the original Home Medication information: patient The following Medications were given to the patient in the Emergency Department: IV NS IV Fluids bolus 0, then 1000 mL/hr, administered: 01/12/2017 10:25:00 PM Thiamine [IVP] IVP 100 mg, administered: 01/12/2017 10:25:00 PM Folic Acid [IVPB] IVPB bolus 0, then 1 mg 1000 mL/hr, administered: 01/12/2017 10:25:00 PM Multivitamin [IVPB] IVPB bolus 0, then 10 mL 1000 mL/hr, administered: 01/12/2017 10:25:00 PM Ativan [IVP] IVP 1 mg, administered: 01/12/2017 10:30:00 PM Ativan [IVP] IVP 1 mg, administered: 01/12/2017 10:57:00 PM IV NS IV Fluids bolus 0, then 2000 mL/hr, administered: 01/12/2017 11:37:00 PM The following Medications were prescribed to the patient: Librium 25 mg: take 1-2 orally every 6 hours as needed for anxiety. Dispense thirty (30). No refill. Substitution is permissible. -- Pollo Beltrán Dr.
--- NOTE | 2017-01-13 00:23 | ED MED RECONCILIATION SUMMARY ---
Patient: LISA ARELLANO Medication Reconciliation Report [facility] VisitID: [id number] [place] [address] 36y, M Registration Date/Time: 01/12/2017 Weight: 95.2 kg Height/Length: 70 in. BMI: 30.1 ALLERGIES: Flu Virus Vaccine The patient's Home Medications are listed below: NONE. The source(s) of the original Home Medication information: patient The following Medications were given to the patient in the Emergency Department: IV NS IV Fluids bolus 0, then 1000 mL/hr, administered: 01/12/2017 10:25:00 PM Thiamine [IVP] IVP 100 mg, administered: 01/12/2017 10:25:00 PM Folic Acid [IVPB] IVPB bolus 0, then 1 mg 1000 mL/hr, administered: 01/12/2017 10:25:00 PM Multivitamin [IVPB] IVPB bolus 0, then 10 mL 1000 mL/hr, administered: 01/12/2017 10:25:00 PM Ativan [IVP] IVP 1 mg, administered: 01/12/2017 10:30:00 PM Ativan [IVP] IVP 1 mg, administered: 01/12/2017 10:57:00 PM IV NS IV Fluids bolus 0, then 2000 mL/hr, administered: 01/12/2017 11:37:00 PM The following Medications were prescribed to the patient: Librium 25 mg: take 1-2 orally every 6 hours as needed for anxiety. Dispense thirty (30). No refill. Substitution is permissible. -- Pollo Beltrán Dr.
--- NOTE | 2017-01-13 00:23 | ED DISCHARGE INSTRUCTIONS ---
Patient: LISA ARELLANO General Instructions [facility] VisitID: [id number] [place] [address] 36y, M Registration Date/Time: 01/12/2017 Alcohol withdrawal. No irritability, agitation, confusion, delirium or hallucinations. No seizures or delirium tremens. INSTRUCTIONS No alcohol. Seek medical help to quit drinking. Prescription Medications: Librium 25 mg: take 1-2 orally every 6 hours as needed for anxiety. Dispense thirty (30). No refill. Substitution is permissible. Follow-up: Follow up with your doctor in two days. Call for an appointment. Screening today revealed the patient's blood pressure to be in the hypertensive range. The patient should follow up with a primary care provider for blood pressure management. ADDITIONAL INFORMATION Alcohol Withdrawal Alcohol withdrawal symptoms occur if you have been drinking steadily for at least several days, and your body gets used to the effect of alcohol. When you suddenly stop drinking (or, even just cut down your daily intake but continue to drink), you may develop alcohol withdrawal, also called the The usual symptoms last 3-4 days and include nervousness, shakiness, nausea, sweating, sleeplessness. In severe cases hallucinations (seeing things that are not there) and seizures can occur. Home Care: You will need plenty of rest and fluids over the next several days. Eat regular meals. Of course, do not drink any more alcohol. During this time, it is best that you stay with family or friends who can help and support you. You can also admit yourself to a residential detox program. Do not drive until all symptoms are gone and you are feeling better. If you were given sedative medication to reduce your symptoms, do not take it more often than prescribed and never take it with alcohol. Follow Up: Once you have gone through the withdrawal symptoms, you have fought half of the mcclain. To avoid the risk of returning to your previous drinking pattern, it is essential that you get follow-up support and treatment. Alcoholics Anonymous offers support through a self-help fellowship. There are no dues or fees. See the Yellow Pages and call for time and place of meetings. www.aa.org [employer] offers support to families of alcohol users. [phone] www.al-anon.org National [place] On Alcoholism And Drug Dependence [phone] www.ncadd.org Residential alcohol detox programs are available. Check the Yellow Pages under Drug Abuse & Treatment Centers. Get Prompt Medical Attention if any of the following occur: Severe shakiness Hallucinations Seizure Fever over 100.5 F (38.0 C) oral Headache, confusion, extreme drowsiness, inability to awaken Increasing upper abdominal pain Repeated vomiting or vomiting blood Chlordiazepoxide Hydrochloride Oral capsule What is this medicine? CHLORDIAZEPOXIDE (klor dye az e POX colleen) is a benzodiazepine. It is used to treat anxiety and alcohol withdrawal. How should I use this medicine? Take this medicine by mouth with a glass of water. Follow the directions on the prescription label. If this medicine upsets your stomach, take it with food or milk. Take your doses at regular intervals. Do not take your medicine more often than directed. If you have been taking this medicine regularly for some time, do not suddenly stop taking it. You must gradually reduce the dose or you may get severe side effects. Ask your doctor or health caregivers non medical for advice. Even after you stop taking this medicine it can still affect your body for several days. Talk to your elevator attendant regarding the use of this medicine in children. Special care may be needed. While this drug may be prescribed for children as young as 6 years for selected conditions, precautions do apply. What side effects may I notice from receiving this medicine? Side effects that you should report to your doctor or health caregivers non medical as soon as possible: allergic reactions like skin rash, itching or hives, swelling of the face, lips, or tongue confusion, depression feeling faint or lightheaded, falls mood changes, excitability or aggressive behavior muscle cramps problems with balance, talking, walking restlessness tremors unusually weak or tired Side effects that usually do not require medical attention (report to your doctor or health caregivers non medical if they continue or are bothersome): change in sex drive or performance constipation drowsiness menstrual changes nausea, vomiting What may interact with this medicine? cimetidine medicines for anxiety or sleeping problems, like alprazolam, lorazepam, or triazolam medicines for depression, mental problems or psychiatric disturbances medicines for HIV infection or AIDS prescription pain medicines rifampin, rifapentine, or rifabutin some medicines for seizures like carbamazepine, phenobarbital, phenytoin, or primidone What if I miss a dose? If you miss a dose, take it as soon as you can. If it is almost time for your next dose, take only that dose. Do not take double or extra doses. Where should I keep my medicine? Keep out of the reach of children. This medicine can be abused. Keep your medicine in a safe place to protect it from theft. Do not share this medicine with anyone. Selling or giving away this medicine is dangerous and against the law. Store at room temperature between 15 and 30 degrees C (59 and 86 degrees F). Throw away any unused medicine after the expiration date. What should I tell my health care provider before I take this medicine? They need to know if you have any of these conditions: an alcohol or drug abuse problem kidney or liver disease suicidal thoughts an unusual or allergic reaction to chlordiazepoxide, other benzodiazepines, foods, dyes, or preservatives or trying to get breast-feeding What should I watch for while using this medicine? Visit your doctor or health caregivers non medical for regular checks on your progress. Your body can become dependent on this medicine. Ask your doctor or health caregivers non medical if you still need to take it. You may get drowsy or dizzy. Do not drive, use machinery, or do anything that needs mental alertness until you know how this medicine affects you. To reduce the risk of dizzy and fainting spells, do not stand or sit up quickly, especially if you are an older patient. Alcohol may increase dizziness and drowsiness. Avoid alcoholic drinks. Do not treat yourself for coughs, colds or allergies without asking your doctor or health caregivers non medical for advice. Some ingredients can increase possible side effects. You have been given the following additional information: Alcohol Withdrawal Chlordiazepoxide Hydrochloride Oral capsule (Electronically signed by Pollo Beltrán Dr. 01/13/2017 0:11)
== END 2017-01-13 00:20 | disposition home or self-care (01) ==
LOC: ED SRH 21:50
DX: F10.239 Alcohol dependence with withdrawal, unspecified (principal); Z87.891 Personal history of nicotine dependence
CPT/HCPCS: 90100; 92720; 95059

== ENCOUNTER 2017-01-13 19:20 | Emergency (ER) | payer SELFPAY ==
--- NOTE | 2017-01-13 20:46 | ED MED RECONCILIATION SUMMARY ---
Patient: LISA ARELLANO Medication Reconciliation Report [facility] VisitID: [id number] [address] [place] [address] 36y, M Registration Date/Time: 01/13/2017 Weight: 95.2 kg Height/Length: 70 in. BMI: 30.1 ALLERGIES: Flu Virus Vaccine The patient's Home Medications are listed below: THE FOLLOWING MEDICATIONS NEED TO BE RECONCILED: Librium 25mg The source(s) of the original Home Medication information: patient The following Medications were given to the patient in the Emergency Department: GI COCKTAIL WHITE [PO] PO 30 mL, administered: 01/13/2017 8:41:00 PM The following Medications were prescribed to the patient: Zofran (orally disintegrating tablets) 4 mg: take 1 orally every 6 hours. Dispense ten (10). No refill. Substitution is permissible. -- Iraida Yoo, PMaryAAnnabellaC
--- NOTE | 2017-01-13 20:46 | ED MAR SUMMARY ---
..... Medication Administration Record [facility] [address] [place] [address] Patient: LISA ARELLANO Visit ID: [id number] 36y, M Weight: 95.2 kg Height/Length: 70 in BMI: 30.1 ALLERGIES: Flu Virus Vaccine Given 20:41 01/13/2017 Yadiel Braden, RMaryNMary Medication Administered: GI COCKTAIL WHITE [PO] (SIMETHICONE), Dose: 30 mL Oral Suspension PO. Medication Ordered: GI Cocktail WHITE PO 30 mL with Lidocaine Viscous Mouth/Throat 15 mL, Maalox Plus Oral 15 mL (NOW).
--- NOTE | 2017-01-13 20:46 | ED CLINICAL REPORT ---
Clinical Report - Physicians/Mid Levels [facility] [address] [place] [address] 01/13/2017 19:21 Patient: LISA ARELLANO Time Seen: 20:35 Jan 13 2017. Arrived- By private vehicle. Historian- patient. HISTORY OF PRESENT ILLNESS Chief Complaint: medication reaction. This started today and is still present. (Patient was possible medication reaction to Librium, which she was prescribed yesterday. Patient reports feeling off, at times agitated after taking the medication. Eat recently, has some epigastric pain, has been having reflux. Denies any chest pain shortness of breath. Has no pain now. Patient was recently seen yesterday, had a workup, labs, IV, IV Ativan, he has been sober for now 24 hours almost, status post drinking very heavily over the last 3 months, status post passing out one of his family members.). Recent medical care: The patient was seen recently in the emergency department. REVIEW OF SYSTEMS No fever, sore throat, sinus drainage, cough or difficulty breathing. No abdominal pain, vomiting, diarrhea, skin rash or back pain. All systems otherwise negative, except as recorded above. PAST HISTORY Problems: Depression. Alcohol Withdrawal. Alcoholism. Additional Surgeries: Rotator Cuff Surgery. Medications: Librium 25mg. Allergies: Flu Virus Vaccine. SOCIAL HISTORY Alcohol use. Patient is a longstanding alcoholic. (sober for almost a few days). ADDITIONAL NOTES The nursing notes have been reviewed. PHYSICAL EXAM Vital Signs: 01/13/2017 19:24 BP: 185/102. HR: 104. RR: 24. O2 saturation: 98%. Temp: 98.4 F. Appearance: Alert. ENT: Ears normal. Nose normal. Neck: Normal inspection. CVS: Normal heart rate and rhythm. Heart sounds normal. Respiratory: No respiratory distress. Breath sounds normal. Abdomen: No visible injury. Soft. Bowel sounds normal. No abdominal tenderness. The bowel sounds are not abnormal. Back: Normal inspection. No CVA tenderness. Skin: Skin warm. Normal skin color. Neuro: Oriented X 3. No motor deficit. LABS, X-RAYS, AND EKG The study has been interpreted contemporaneously. The study has been independently viewed by me. I agree with and confirm the computer reading of the EKG. PROGRESS AND PROCEDURES Course of Care: He has no active pain. EKG unremarkable. Otherwise his symptoms are most consistent with benzo use. He did drive himself here. He does not wish for any further treatment or any lab draw, has been attempting to stop drinking at home by himself. He has evidence of the past. 01/13/2017 20:41 BP: 154/91. HR: 94. RR: 16. O2 saturation: 97%. Temp: 98.6 F. Pain level now: 0/10. Patient is stable. Physical exam findings are improved. Symptoms better. Patient/family counseled. Differential Diagnosis: I considered muscle strain, pleurisy, intercostal neuritis, myocardial infarction, aortic dissection, pulmonary embolism and gastroesophageal reflux disease as a possible cause of chest pain in this patient. This is a partial list of diagnoses considered. Disposition: Discharged. Condition: good. CLINICAL IMPRESSION Acute epigastric abdominal pain. Adverse drug reaction. (Side Effect). INSTRUCTIONS Warnings: Further evaluation is necessary. GENERAL WARNINGS: Return or contact your physician immediately if your condition worsens or changes unexpectedly, if not improving as expected, or if other problems arise. Prescription Medications: Zofran (orally disintegrating tablets) 4 mg: take 1 orally every 6 hours. Dispense ten (10). No refill. Substitution is permissible. Follow-up: Follow up with your doctor as needed. (Electronically signed by Iraida Yoo P.A.-C 01/13/2017 20:44)
--- NOTE | 2017-01-13 20:46 | ED NURSING NOTES ---
Clinical Report - Nurses [facility] [address] [place] [address] 01/13/2017 19:21 Patient: CHARLES ARELLANO TRIAGE Triage time 19:24. Acuity: LEVEL 3. Chief Complaint: (allergic reaction to librium 25mg). --19:31 Jhonatan Pryor R.N. 19:24 01/13/17. BP: 185/102. HR: 104. RR: 24. O2 saturation: 98%. Temp: 98.4 F. Pain level now 01/14. --19:31 Jhonatan Pryor R.N. Weight: 95.2 kg stated. Height/Length: 70 inches Per Patient. BMI: 30.1. --19:30 Jhonatan Pryor R.N. Medications Librium 25mg. --19:28 Jhonatan Pryor R.N. Medication/allergy information source: the patient. --19:31 Jhonatan Pryor R.N. Allergies Flu Virus Vaccine. --19:28 Jhonatan Pryor R.N. History Arrived by private vehicle. Historian: patient. This started just prior to arrival. ( Pt was seen last night and was given Librium 25mg. Pt read about Librium last night and looked up the medication. The reading material told him that Librium can cause more psych meds. Pt came in due to burning sensation mid abdomen. Pt is very anxious and breathing. Pt wants more ativan, because it made him feel good last night.). 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 PAST MEDICAL HX: ( Pt is trying to stop drinking.). SOCIAL HX: Never smoker. Heavy alcohol use; consumes beer weekly. No drug use. --19:31 Jhonatan Pryor R.N. PROBLEMS: Depression. Alcohol Withdrawal. Alcoholism. --19:29 Jhonatan Pryor R.N. Interventions ID band on patient. To treatment room. --19:31 Jhonatan Pryor R.N. PHYSICAL ASSESSMENT Ambulatory to room. ( Charles says he was experiencing burning in his stomach that made him anxious about the prescribed Librium. He did a Google search on Librium which told him he could have worsened depression. He says a family member of severe depression and he does not want to . Charles says the Ativan given to him last night held him over but now he is feeling very anxious. He states his last drink was yesterday at 3 pm and is completely done with alcohol. Charles believes his withdrawals could be getting worse causing his symptoms.). GENERAL / NEURO / PSYCH: Alert. Oriented X 4. Appears anxious. RESPIRATORY: No respiratory distress. Respirations not labored. Breath sounds within normal limits. CVS: Heart sounds within normal limits. Capillary refill less than 2 seconds. Pulses within normal limits. GI / : Obesity. Abdomen soft and nontender and normal bowel sounds. SKIN: Skin intact. Skin is warm and dry. --19:40 Yadiel Braden R.N. NURSING PROGRESS NOTES Pulse oximeter and NIBP monitor placed on patient. YOLANDE COMA SCORE: Yolande Coma Scale: 15- eyes open spontaneously (4); best verbal response- oriented x 4 (5); best motor response- obeys commands (6). --19:32 Jhonatan Pryor R.N. The initial plan of care for this patient has been created This plan of care was discussed with the patient. Warming measures: blanket applied. Reassurance given to the patient. Two patient identifiers checked. Call light placed in reach. Side rails up x 1. Bed placed in lowest position. Brakes of bed on. Patient ready for evaluation- PA notified. --19:40 Yadiel Braden R.N. 20:41 01/13/2017 GI COCKTAIL WHITE (Simethicone) PO Oral Suspension 30 mL given. Allergies verified and confirmed 5 rights. --20:41 Yadiel Braden R.N. ( Charles reports he lost his Uncle about 5 months ago. Charles states he was very close to his Uncle and held his hand as he . He states he has not been the same since his Uncle's and has experienced trouble coping. Charles reports he has 2 sons (12 y.o. and 13 y.o.) whom he is extremely proud of. He states that his and children are all very close and he feel safe at home. He has no suicidal ideation at this time but does state he feels "severely depressed." Charles reports he will return to the ED for withdrawal concerns or if he has suicidal ideation.). --20:44 Yadiel Braden R.N. DISPOSITION / DISCHARGE Departure time: 20:43. Condition at departure: stable. The goals identified in the patient's plan of care were met. No learning barriers present. Discharge instructions provided and reviewed with the patient. Reviewed medication(s) side effects, precautions, dosing and course information. Prescription(s) given to the patient. Patient verbalized understanding. Written instructions provided in Wallisian. ( Charles verbalizes understanding of all d/c instructions including need to come back to ER if concerned about withdrawing. He does not have any questions and voices no concerns at this time. He states he will f/u with his PCP this week; will establish PCP at [facility].). The patient was discharged by the physician medical receptionist medical assistant. He was discharged home and unaccompanied at time of discharge. He left the Emergency Department ambulatory and via private vehicle. Patient driving. YOLANDE COMA SCORE: Bearden Coma Scale: 15- eyes open spontaneously (4); best verbal response- oriented x 4 (5); best motor response- obeys commands (6). --20:43 Yadiel Braden R.N. 20:41 01/13/17. BP: 154/91 taken on the left arm, via an automated monitor, while lying. HR: 94 (normal rate). RR: 16 (regular, unlabored and normal). O2 saturation: 97% on room air. Temp: 98.6 F (oral). Pain level now: 0/10. --20:43 Yadiel Braden R.N. ( Gave Charles resources for deep breathing to use if feeling anxious.). --20:45 Yadiel Braden R.N. Locked/Released at 01/13/2017 20:46 by Yadiel Braden R.N.
--- NOTE | 2017-01-13 20:46 | ED MAR SUMMARY ---
..... Medication Administration Record [facility] [address] [place] [address] Patient: LISA ARELLANO Visit ID: [id number] 36y, M Weight: 95.2 kg Height/Length: 70 in BMI: 30.1 ALLERGIES: Flu Virus Vaccine Given 20:41 01/13/2017 Yadiel Braden, RMaryNMary Medication Administered: GI COCKTAIL WHITE [PO] (SIMETHICONE), Dose: 30 mL Oral Suspension PO. Medication Ordered: GI Cocktail WHITE PO 30 mL with Lidocaine Viscous Mouth/Throat 15 mL, Maalox Plus Oral 15 mL (NOW).
--- NOTE | 2017-01-13 20:46 | ED NURSING NOTES ---
Clinical Report - Nurses [facility] [address] [place] [address] 01/13/2017 19:21 Patient: CHARLES ARELLANO TRIAGE Triage time 19:24. Acuity: LEVEL 3. Chief Complaint: (allergic reaction to librium 25mg). --19:31 Jhonatan Pryor R.N. 19:24 01/13/17. BP: 185/102. HR: 104. RR: 24. O2 saturation: 98%. Temp: 98.4 F. Pain level now 01/14. --19:31 Jhonatan Pryor R.N. Weight: 95.2 kg stated. Height/Length: 70 inches Per Patient. BMI: 30.1. --19:30 Jhonatan Pryor R.N. Medications Librium 25mg. --19:28 Jhonatan Pryor R.N. Medication/allergy information source: the patient. --19:31 Jhonatan Pryor R.N. Allergies Flu Virus Vaccine. --19:28 Jhonatan Pryor R.N. History Arrived by private vehicle. Historian: patient. This started just prior to arrival. ( Pt was seen last night and was given Librium 25mg. Pt read about Librium last night and looked up the medication. The reading material told him that Librium can cause more psych meds. Pt came in due to burning sensation mid abdomen. Pt is very anxious and breathing. Pt wants more ativan, because it made him feel good last night.). 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 PAST MEDICAL HX: ( Pt is trying to stop drinking.). SOCIAL HX: Never smoker. Heavy alcohol use; consumes beer weekly. No drug use. --19:31 Jhonatan Pryor R.N. PROBLEMS: Depression. Alcohol Withdrawal. Alcoholism. --19:29 Jhonatan Pryor R.N. Interventions ID band on patient. To treatment room. --19:31 Jhonatan Pryor R.N. PHYSICAL ASSESSMENT Ambulatory to room. ( Charles says he was experiencing burning in his stomach that made him anxious about the prescribed Librium. He did a Google search on Librium which told him he could have worsened depression. He says a family member of severe depression and he does not want to . Charles says the Ativan given to him last night held him over but now he is feeling very anxious. He states his last drink was yesterday at 3 pm and is completely done with alcohol. Charles believes his withdrawals could be getting worse causing his symptoms.). GENERAL / NEURO / PSYCH: Alert. Oriented X 4. Appears anxious. RESPIRATORY: No respiratory distress. Respirations not labored. Breath sounds within normal limits. CVS: Heart sounds within normal limits. Capillary refill less than 2 seconds. Pulses within normal limits. GI / : Obesity. Abdomen soft and nontender and normal bowel sounds. SKIN: Skin intact. Skin is warm and dry. --19:40 Yadiel Braden R.N. NURSING PROGRESS NOTES Pulse oximeter and NIBP monitor placed on patient. YOLANDE COMA SCORE: Yolande Coma Scale: 15- eyes open spontaneously (4); best verbal response- oriented x 4 (5); best motor response- obeys commands (6). --19:32 Jhonatan Pryor R.N. The initial plan of care for this patient has been created This plan of care was discussed with the patient. Warming measures: blanket applied. Reassurance given to the patient. Two patient identifiers checked. Call light placed in reach. Side rails up x 1. Bed placed in lowest position. Brakes of bed on. Patient ready for evaluation- PA notified. --19:40 Yadiel Braden R.N. 20:41 01/13/2017 GI COCKTAIL WHITE (Simethicone) PO Oral Suspension 30 mL given. Allergies verified and confirmed 5 rights. --20:41 Yadiel Braden R.N. ( Charles reports he lost his Uncle about 5 months ago. Charles states he was very close to his Uncle and held his hand as he . He states he has not been the same since his Uncle's and has experienced trouble coping. Charles reports he has 2 sons (12 y.o. and 13 y.o.) whom he is extremely proud of. He states that his and children are all very close and he feel safe at home. He has no suicidal ideation at this time but does state he feels "severely depressed." Charles reports he will return to the ED for withdrawal concerns or if he has suicidal ideation.). --20:44 Yadiel Braden R.N. DISPOSITION / DISCHARGE Departure time: 20:43. Condition at departure: stable. The goals identified in the patient's plan of care were met. No learning barriers present. Discharge instructions provided and reviewed with the patient. Reviewed medication(s) side effects, precautions, dosing and course information. Prescription(s) given to the patient. Patient verbalized understanding. Written instructions provided in Honduran. ( Charles verbalizes understanding of all d/c instructions including need to come back to ER if concerned about withdrawing. He does not have any questions and voices no concerns at this time. He states he will f/u with his PCP this week; will establish PCP at [facility].). The patient was discharged by the physician clerical assistant. He was discharged home and unaccompanied at time of discharge. He left the Emergency Department ambulatory and via private vehicle. Patient driving. YOLANDE COMA SCORE: Beckley Coma Scale: 15- eyes open spontaneously (4); best verbal response- oriented x 4 (5); best motor response- obeys commands (6). --20:43 Yadiel Braden R.N. 20:41 01/13/17. BP: 154/91 taken on the left arm, via an automated monitor, while lying. HR: 94 (normal rate). RR: 16 (regular, unlabored and normal). O2 saturation: 97% on room air. Temp: 98.6 F (oral). Pain level now: 0/10. --20:43 Yadiel Braden R.N. ( Gave Charles resources for deep breathing to use if feeling anxious.). --20:45 Yadiel Braden R.N. Locked/Released at 01/13/2017 20:46 by Yadiel Braden R.N.
--- NOTE | 2017-01-13 20:46 | ED DISCHARGE INSTRUCTIONS ---
Patient: LISA ARELLANO General Instructions [facility] VisitID: [id number] [place] [address] 36y, M Registration Date/Time: 01/13/2017 Acute epigastric abdominal pain. Adverse drug reaction. (Side Effect). INSTRUCTIONS Warnings: Further evaluation is necessary. GENERAL WARNINGS: Return or contact your physician immediately if your condition worsens or changes unexpectedly, if not improving as expected, or if other problems arise. Prescription Medications: Zofran (orally disintegrating tablets) 4 mg: take 1 orally every 6 hours. Dispense ten (10). No refill. Substitution is permissible. Follow-up: Follow up with your doctor as needed. ADDITIONAL INFORMATION Abdominal Pain,Uncertain Cause [Male] Based on your visit today, the exact cause of your abdominalpain is not clear. Your exam and tests do not indicate a dangerous cause at this time. However, the signs of a serious problem may take more time to appear. Although your evaluation was reassuring today, sometimes early in the course of many conditions, exam and lab tests can appear normal. Therefore, it is important for you to watch for any new symptoms or worsening of your condition. Causes It may not be obvious what caused your symptoms. Pay attention to things that do seem to make your symptoms worse or better and discuss this with your doctor when you follow up. Diagnosis The evaluation of abdominal pain in the emergency department may onlyrequire an exam by the doctor or it may include blood, urine or imaging studies, depending on many factors. Sometimes exams and tests can identify a cause but in many cases, a clear cause is not found. Further testing at follow up visits may help to suggest a clear diagnosis. Home Care Rest as much as possible until your next exam. Try to avoid any medications (unless otherwise directed by your doctor), foods, activities, or other factors that you may have contributed to your symptoms. Try to eat foods that you know that you have tolerated well in the past. Certain diets may be recommended for some conditions that cause abdominal pain. However, since the cause of your symptoms may not be clear, discuss your diet more with your primary care provider or specialist for further recommendations. Eating several small meals per day as opposed to 2 or 3 larger meals may help. Monitor closely for anything that may make your symptoms worse or better. Pay close attention to symptoms below that may indicate worsening of your condition. Follow Up and Precautions See your doctoras instructed or sooneror if your symptoms are not improving.In some cases, you may need more testing. When to Seek Medical Attention Contact your doctor or see medical attention ifany of the following occur: Pain is becoming worse You are unable to take your medications due to excessive vomiting Swelling of the abdomen Fever of 100.4F (38C) or higher, or as directed by your health care provider Blood in vomit or bowel movements (dark red or black color) Jaundice (yellow color of eyes and skin) New onset of weakness, dizziness or fainting New onset of chest, arm, back, neck or jaw pain Ondansetron Hydrochloride Oral tablet What is this medicine? ONDANSETRON (on ROSA se joanna) is used to treat nausea and vomiting caused by chemotherapy. It is also used to prevent or treat nausea and vomiting after surgery. How should I use this medicine? Take this medicine by mouth with a glass of water. Follow the directions on your prescription label. Take your doses at regular intervals. Do not take your medicine more often than directed. Talk to your wireline supervisor regarding the use of this medicine in children. Special care may be needed. What side effects may I notice from receiving this medicine? Side effects that you should report to your doctor or health home care physical therapist as soon as possible: allergic reactions like skin rash, itching or hives, swelling of the face, lips or tongue breathing problems dizziness fast or irregular heartbeat feeling faint or lightheaded, falls fever and chills swelling of the hands or feet tightness in the chest Side effects that usually do not require medical attention (report to your doctor or health home care physical therapist if they continue or are bothersome): constipation or diarrhea headache What may interact with this medicine? Do not take this medicine with any of the following medications: -apomorphine -cisapride -dofetilide -dronedarone -pimozide -thioridazine -ziprasidone This medicine may also interact with the following medications: -carbamazepine -phenytoin -rifampicin -tramadol -other medicines that prolong the QT interval (cause an abnormal heart rhythm) What if I miss a dose? If you miss a dose, take it as soon as you can. If it is almost time for your next dose, take only that dose. Do not take double or extra doses. Where should I keep my medicine? Keep out of the reach of children. Store between 2 and 30 degrees C (36 and 86 degrees F). Throw away any unused medicine after the expiration date. What should I tell my health care provider before I take this medicine? They need to know if you have any of these conditions: heart disease history of irregular heartbeat liver disease low levels of magnesium or potassium in the blood an unusual or allergic reaction to ondansetron, granisetron, other medicines, foods, dyes, or preservatives or trying to get breast-feeding What should I watch for while using this medicine? Check with your doctor or health home care physical therapist right away if you have any sign of an allergic reaction. You have been given the following additional information: Abdominal Pain, Unknown Cause, (Male) Ondansetron Hydrochloride Oral tablet (Electronically signed by Iraida Yoo P.A.-C 01/13/2017 20:44)
--- NOTE | 2017-01-13 20:46 | ED ORDER SUMMARY ---
..... Patient: LISA ARELLANO OrderSheet [facility] VisitID: [id number] [place] [address] 36y, M Registration Date/Time: 01/13/2017 ORDER SHEET Weight: 95.2 kg (stated) Allergies: Flu Virus Vaccine GENERAL ORDERS: EKG - ER Stat (20:04 01/13/2017 EKoroledarcy P.A.-C) (Ack 20:05 AMcQuoid ER Tech1) (20:18 JDeElena R.N.) MEDICATION ORDERS: GI Cocktail WHITE PO 30 mL with Lidocaine Viscous Mouth/Throat 15 mL, Maalox Plus Oral 15 mL (NOW) (19:41 01/13/2017 Wild Bang.A.-C) (Ack 19:42 JDeElena R.N.) (Cancelled: Patient [id number]:02 JDeElena R.N.) Zofran ODT PO 4 mg (NOW) (19:41 01/13/2017 Jonathanledarcy P.A.-C) (Ack 19:42 JDeElena R.N.) (Cancelled: Patient Kgkzrqp21:02 JDeElena R.N.) GI Cocktail WHITE PO 30 mL with Lidocaine Viscous Mouth/Throat 15 mL, Maalox Plus Oral 15 mL (NOW) (20:40 01/13/2017 JDeElena R.N. verbal order read back to Wild DiegoAMary-C) (20:41 JDeElena R.N.) IV FLUIDS: ORDER SHEET NOTES: [Electronically signed by Iraida Yoo P.A.-C (20:44 01/13/2017)] [Electronically signed by Yadiel Braden R.N. (20:46 01/13/2017)] [Electronically locked/signed by Yadiel Braden R.N. (20:46 01/13/2017)]
--- NOTE | 2017-01-13 20:46 | ED ORDER SUMMARY ---
..... Patient: LISA ARELLANO OrderSheet Located Within [facility] VisitID: [id number] [place] [address] 36y, M Registration Date/Time: 01/13/2017 ORDER SHEET Weight: 95.2 kg (stated) Allergies: Flu Virus Vaccine GENERAL ORDERS: EKG - ER Stat (20:04 01/13/2017 EKoroledarcy P.A.-C) (Ack 20:05 AMcQuoid ER Tech1) (20:18 JDeElena R.N.) MEDICATION ORDERS: GI Cocktail WHITE PO 30 mL with Lidocaine Viscous Mouth/Throat 15 mL, Maalox Plus Oral 15 mL (NOW) (19:41 01/13/2017 Wild Bang.A.-C) (Ack 19:42 JDeElena R.N.) (Cancelled: Patient Ndsfagb97:02 JDeElena R.N.) Zofran ODT PO 4 mg (NOW) (19:41 01/13/2017 Jonathanledarcy P.A.-C) (Ack 19:42 JDeElena R.N.) (Cancelled: Patient Sypdmdu84:02 JDeElena R.N.) GI Cocktail WHITE PO 30 mL with Lidocaine Viscous Mouth/Throat 15 mL, Maalox Plus Oral 15 mL (NOW) (20:40 01/13/2017 JDeElena R.N. verbal order read back to Wild DiegoAMary-C) (20:41 JDeElena R.N.) IV FLUIDS: ORDER SHEET NOTES: [Electronically signed by Iraida Yoo P.A.-C (20:44 01/13/2017)] [Electronically signed by Yadiel Braden R.N. (20:46 01/13/2017)] [Electronically locked/signed by Yadiel Braden R.N. (20:46 01/13/2017)]
--- NOTE | 2017-01-13 20:46 | ED DISCHARGE INSTRUCTIONS ---
Patient: LISA ARELLANO General Instructions VisitID: [id number] [place] [address] 36y, M Registration Date/Time: 01/13/2017 Acute epigastric abdominal pain. Adverse drug reaction. (Side Effect). INSTRUCTIONS Warnings: Further evaluation is necessary. GENERAL WARNINGS: Return or contact your physician immediately if your condition worsens or changes unexpectedly, if not improving as expected, or if other problems arise. Prescription Medications: Zofran (orally disintegrating tablets) 4 mg: take 1 orally every 6 hours. Dispense ten (10). No refill. Substitution is permissible. Follow-up: Follow up with your doctor as needed. ADDITIONAL INFORMATION Abdominal Pain,Uncertain Cause [Male] Based on your visit today, the exact cause of your abdominalpain is not clear. Your exam and tests do not indicate a dangerous cause at this time. However, the signs of a serious problem may take more time to appear. Although your evaluation was reassuring today, sometimes early in the course of many conditions, exam and lab tests can appear normal. Therefore, it is important for you to watch for any new symptoms or worsening of your condition. Causes It may not be obvious what caused your symptoms. Pay attention to things that do seem to make your symptoms worse or better and discuss this with your doctor when you follow up. Diagnosis The evaluation of abdominal pain in the emergency department may onlyrequire an exam by the doctor or it may include blood, urine or imaging studies, depending on many factors. Sometimes exams and tests can identify a cause but in many cases, a clear cause is not found. Further testing at follow up visits may help to suggest a clear diagnosis. Home Care Rest as much as possible until your next exam. Try to avoid any medications (unless otherwise directed by your doctor), foods, activities, or other factors that you may have contributed to your symptoms. Try to eat foods that you know that you have tolerated well in the past. Certain diets may be recommended for some conditions that cause abdominal pain. However, since the cause of your symptoms may not be clear, discuss your diet more with your primary care provider or specialist for further recommendations. Eating several small meals per day as opposed to 2 or 3 larger meals may help. Monitor closely for anything that may make your symptoms worse or better. Pay close attention to symptoms below that may indicate worsening of your condition. Follow Up and Precautions See your doctoras instructed or sooneror if your symptoms are not improving.In some cases, you may need more testing. When to Seek Medical Attention Contact your doctor or see medical attention ifany of the following occur: Pain is becoming worse You are unable to take your medications due to excessive vomiting Swelling of the abdomen Fever of 100.4F (38C) or higher, or as directed by your health care provider Blood in vomit or bowel movements (dark red or black color) Jaundice (yellow color of eyes and skin) New onset of weakness, dizziness or fainting New onset of chest, arm, back, neck or jaw pain Ondansetron Hydrochloride Oral tablet What is this medicine? ONDANSETRON (on ROSA se joanna) is used to treat nausea and vomiting caused by chemotherapy. It is also used to prevent or treat nausea and vomiting after surgery. How should I use this medicine? Take this medicine by mouth with a glass of water. Follow the directions on your prescription label. Take your doses at regular intervals. Do not take your medicine more often than directed. Talk to your research & analytics manager regarding the use of this medicine in children. Special care may be needed. What side effects may I notice from receiving this medicine? Side effects that you should report to your doctor or health spiritual care coordinator as soon as possible: allergic reactions like skin rash, itching or hives, swelling of the face, lips or tongue breathing problems dizziness fast or irregular heartbeat feeling faint or lightheaded, falls fever and chills swelling of the hands or feet tightness in the chest Side effects that usually do not require medical attention (report to your doctor or health spiritual care coordinator if they continue or are bothersome): constipation or diarrhea headache What may interact with this medicine? Do not take this medicine with any of the following medications: -apomorphine -cisapride -dofetilide -dronedarone -pimozide -thioridazine -ziprasidone This medicine may also interact with the following medications: -carbamazepine -phenytoin -rifampicin -tramadol -other medicines that prolong the QT interval (cause an abnormal heart rhythm) What if I miss a dose? If you miss a dose, take it as soon as you can. If it is almost time for your next dose, take only that dose. Do not take double or extra doses. Where should I keep my medicine? Keep out of the reach of children. Store between 2 and 30 degrees C (36 and 86 degrees F). Throw away any unused medicine after the expiration date. What should I tell my health care provider before I take this medicine? They need to know if you have any of these conditions: heart disease history of irregular heartbeat liver disease low levels of magnesium or potassium in the blood an unusual or allergic reaction to ondansetron, granisetron, other medicines, foods, dyes, or preservatives or trying to get breast-feeding What should I watch for while using this medicine? Check with your doctor or health spiritual care coordinator right away if you have any sign of an allergic reaction. You have been given the following additional information: Abdominal Pain, Unknown Cause, (Male) Ondansetron Hydrochloride Oral tablet (Electronically signed by Iraida Yoo P.A.-C 01/13/2017 20:44)
--- NOTE | 2017-01-13 20:46 | ED MED RECONCILIATION SUMMARY ---
Patient: LISA ARELLANO Medication Reconciliation Report [facility] VisitID: [id number] [address] [place] [address] 36y, M Registration Date/Time: 01/13/2017 Weight: 95.2 kg Height/Length: 70 in. BMI: 30.1 ALLERGIES: Flu Virus Vaccine The patient's Home Medications are listed below: THE FOLLOWING MEDICATIONS NEED TO BE RECONCILED: Librium 25mg The source(s) of the original Home Medication information: patient The following Medications were given to the patient in the Emergency Department: GI COCKTAIL WHITE [PO] PO 30 mL, administered: 01/13/2017 8:41:00 PM The following Medications were prescribed to the patient: Zofran (orally disintegrating tablets) 4 mg: take 1 orally every 6 hours. Dispense ten (10). No refill. Substitution is permissible. -- Iraida Yoo, PMaryAAnnabellaC
== END 2017-01-13 20:48 | disposition home or self-care (01) ==
LOC: ED SRH 19:20
DX: R10.13 Epigastric pain (principal); T42.4X5A Adverse effect of benzodiazepines, initial encounter; Z88.7 Allergy status to serum and vaccine

== ENCOUNTER 2017-01-14 07:21 | Emergency (ER) | payer SELFPAY ==
--- NOTE | 2017-01-14 08:46 | ED NURSING NOTES ---
Clinical Report - Nurses [facility] [address] [place] [address] 01/14/2017 7:23 Patient: LISA ARELLANO TRIAGE Triage time 07:24. Acuity: LEVEL 3. Chief Complaint: POSSIBLE ALLERGIC REACTION. Alert. No acute distress. SEPSIS SCREEN: Sepsis Screen. Negative (no infection suspected/documented). --07:35 Pawan Finn R.N. 07:30 01/14/17. BP: 150/94. HR: 81. RR: 16. O2 saturation: 97%. Temp: 97.4 F. Pain level now 0/10. --07:35 Pawan Finn R.N. YOLANDE COMA SCORE: Yolande Coma Scale: 15- eyes open spontaneously (4); best verbal response- oriented x 4 (5); best motor response- obeys commands (6). --07:35 Pawan Finn R.N. Weight: 95.2 kg stated. Height/Length: 70 inches Per Patient. BMI: 30.1. --07:34 Pawan Finn R.N. Medications None. --07:34 Pawan Finn R.N. Allergies Librium. --07:34 Pawan Finn R.N. Flu Virus Vaccine. --07:34 Pawan Finn R.N. Medication/allergy information source: the patient. --07:35 Pawan Finn R.N. History Arrived by private vehicle. Primary physician (no pcp). ( Revisit, seen here 2 days ago for c/o etoh withdrawl. Presents today with c/o librium side effects. States he has experienced cough, shortness of breath, a rash (states rash has resolved), depression, confusion, and aggression. Last librium dose was last night.). Onset. (2 days ago). 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 SOCIAL HX: Never smoker. Alcohol use. Last drink was 3 days ago. No drug use. ABUSE ASSESSMENT: Abuse assessment: The patient was asked "Do you feel safe in your home?". No report of abuse. FALL RISK ASSESSMENT: Fall risk assessment completed. No fall risk identified. NUTRITIONAL RISK ASSESSMENT: The nutritional risk assessment revealed no deficiencies. FUNCTIONAL ASSESSMENT: Functional assessment: no impairments noted. LEARNING NEEDS ASSESSMENT: The learning needs assessment revealed no barriers. SKIN INTEGRITY ASSESSMENT: Skin integrity risk assessment completed. No skin integrity risk identified. --07:35 Pawan Finn R.N. PROBLEMS: Adverse Drug Reaction. Abdominal Pain. Depression. Alcohol Withdrawal. Alcoholism. --07:35 Pawan Finn R.N. ADDITIONAL SURGERIES: Rotator Cuff Surgery. --07:35 Pawan Finn R.N. Interventions ID band on patient. To treatment room. --07:35 Pawan Finn R.N. PHYSICAL ASSESSMENT Ambulatory to room. GENERAL / NEURO / PSYCH: Alert. The patient does not appear to be in acute distress. Oriented X 4. RESPIRATORY: No respiratory distress. Respirations not labored. No cough. CVS: Capillary refill less than 2 seconds. GI / : Abdomen nontender. SKIN: Skin is intact, warm and dry. No skin rash. --07:36 Pawan Finn R.N. NURSING PROGRESS NOTES 07:36 01/14/17. The plan of care for this patient has been created. Patient gowned. Head of bed elevated. Call light placed in reach. Bed placed in lowest position. Brakes of bed on. Patient ready for evaluation- chart flagged. --07:36 Pawan Finn R.N. 08:12 01/14/2017 Ativan (LORazepam) IM 2 mg given. Given in the left anterior lateral thigh. Allergies verified, confirmed 5 rights and sedative warning given to the patient. --08:17 Pawan Finn R.N. 08:27 01/14/17. Reassessment after medication administered. He reports no complaints, he is calm and resting quietly and he has had no adverse reaction. --08:27 Pawan Finn R.N. DISPOSITION / DISCHARGE 08:52 01/14/17. Departure time: 08. Condition at departure: improved and stable. No learning barriers present. Discharge instructions provided and reviewed with the patient. Reviewed medication(s) side effects, precautions, dosing and course information. Prescription(s) given to the patient. Patient verbalized understanding. Written instructions provided in Hungarian. The patient was discharged by the physician. He was discharged home. He left the Emergency Department ambulatory and via private vehicle. Patient driving. --08:52 Pawan Finn R.N. 08:50 01/14/17. BP: 159/67. HR: 81. RR: 16. O2 saturation: 98% on room air. Pain level now 03/16. --08:52 Pawan Finn R.N. Locked/Released at 01/14/2017 14:16 by Pawan Finn R.N.
--- NOTE | 2017-01-14 08:46 | ED ORDER SUMMARY ---
..... Patient: LISA ARELLANO OrderSheet [facility] VisitID: [id number] [address] [place] [address] 36y, M Registration Date/Time: 01/14/2017 ORDER SHEET Weight: 95.2 kg (stated) Allergies: Librium, Flu Virus Vaccine GENERAL ORDERS: MEDICATION ORDERS: Ativan IM 2 mg (HIGH ALERT MEDICATION, NOW) (08:11 01/14/2017 Deni Drake) (8:17 Leatha Dexter) Previously tolerated Ativan here IV FLUIDS: Ativan IV 2 mg (HIGH ALERT MEDICATION, NOW) (07:51 01/14/2017 Deni Drake) (Cancelled: Physician Order8:10 Deni Drake) Tolerated Ativan at last ER visit ORDER SHEET NOTES: [Electronically signed by Pollo Beltrán Dr. (08:46 01/14/2017)] [Electronically signed by Pawan Finn R.N. (14:16 01/14/2017)] [Electronically locked/signed by Pawan Finn R.N. (14:16 01/14/2017)]
--- NOTE | 2017-01-14 08:46 | ED ORDER SUMMARY ---
..... Patient: LISA ARELLANO OrderSheet [facility] VisitID: [id number] [address] [place] [address] 36y, M Registration Date/Time: 01/14/2017 ORDER SHEET Weight: 95.2 kg (stated) Allergies: Librium, Flu Virus Vaccine GENERAL ORDERS: MEDICATION ORDERS: Ativan IM 2 mg (HIGH ALERT MEDICATION, NOW) (08:11 01/14/2017 Deni Drake) (8:17 Leatha Dexter) Previously tolerated Ativan here IV FLUIDS: Ativan IV 2 mg (HIGH ALERT MEDICATION, NOW) (07:51 01/14/2017 Deni Drake) (Cancelled: Physician Order8:10 Deni Drake) Tolerated Ativan at last ER visit ORDER SHEET NOTES: [Electronically signed by Pollo Beltrán Dr. (08:46 01/14/2017)] [Electronically signed by Pawan Finn R.N. (14:16 01/14/2017)] [Electronically locked/signed by Pawan Finn R.N. (14:16 01/14/2017)]
--- NOTE | 2017-01-14 08:46 | ED CLINICAL REPORT ---
Clinical Report - Physicians/Mid Levels [facility] [address] [place] [address] 01/14/2017 7:23 [id number] Time Seen: 07:40; initial patient contact. Arrived- By private vehicle. Historian- patient. HISTORY OF PRESENT ILLNESS Chief Complaint: "GOT THE SHAKES". Wants to stop drinking. Symptoms started about 3 days ago. Substances abused: Alcohol. (about 2 days ago). No nausea, vomiting, diarrhea, seizure or delusions. No hallucinations or suicidal thoughts. He has had tremors and been agitated and depressed. Not confused or paranoid. The symptoms are described as moderate. No injuries noted. Similar symptoms previously: None. Recent medical care: The patient was seen recently at this facility in the emergency department. REVIEW OF SYSTEMS No headache, dizziness or palpitations. All systems otherwise negative, except as recorded above. PAST HISTORY Adverse Drug Reaction. Abdominal Pain. Depression. Alcohol Withdrawal. Alcoholism. ADDITIONAL SURGERIES: Rotator Cuff Surgery. SOCIAL HISTORY Never smoker. Heavy alcohol use. Patient is alcoholic. No drug use. Has social support. Has place to stay. ADDITIONAL NOTES The nursing notes have been reviewed. PHYSICAL EXAM Vital Signs: 01/14/2017 07:30 BP: 150/94. HR: 81. RR: 16. O2 saturation: 97%. Temp: 97.4 F. Have been reviewed. Hypertensive. Heart rate normal. Respiratory rate normal. Temperature normal. Oxygen saturation normal. Appearance: Alert. Oriented X3. No acute distress. ENT: Moist mucous membranes. CVS: Normal heart rate and rhythm. Heart sounds normal. Respiratory: No respiratory distress. Breath sounds normal. Neuro: Alert. Oriented X 3. Mood/affect normal. Speech normal. (Mild tremor noted). PROGRESS AND PROCEDURES Course of Care: Ativan 2mg IM given. The patient's symptoms are now gone. Physical exam findings are improved. Disposition: Discharged home in good and improved condition. CLINICAL IMPRESSION Alcohol withdrawal with irritability. No confusion, delirium, hallucinations, seizures or delirium tremens. INSTRUCTIONS No alcohol. Seek medical help to quit drinking. Your Current Medications: CONTINUE TAKING THE FOLLOWING MEDICATIONS: None*. Prescription Medications: Ativan 1 mg: take 1 orally every 6 hours as needed for anxiety. Dispense fifteen (15). No refill. Substitution is permissible. Follow-up: Follow up with your doctor today. Call for an appointment. Screening today revealed the patient's blood pressure to be in the hypertensive range. The patient should follow up with a primary care provider for blood pressure management. (Electronically signed by Pollo Beltrán Dr. 01/14/2017 8:46)
--- NOTE | 2017-01-14 08:46 | ED CLINICAL REPORT ---
Clinical Report - Physicians/Mid Levels [facility] [address] [place] [address] 01/14/2017 7:23 Patient: LISA ARELLANO [facility] [id number] Time Seen: 07:40; initial patient contact. Arrived- By private vehicle. Historian- patient. HISTORY OF PRESENT ILLNESS Chief Complaint: "GOT THE SHAKES". Wants to stop drinking. Symptoms started about 3 days ago. Substances abused: Alcohol. (about 2 days ago). No nausea, vomiting, diarrhea, seizure or delusions. No hallucinations or suicidal thoughts. He has had tremors and been agitated and depressed. Not confused or paranoid. The symptoms are described as moderate. No injuries noted. Similar symptoms previously: None. Recent medical care: The patient was seen recently at this facility in the emergency department. REVIEW OF SYSTEMS No headache, dizziness or palpitations. All systems otherwise negative, except as recorded above. PAST HISTORY Adverse Drug Reaction. Abdominal Pain. Depression. Alcohol Withdrawal. Alcoholism. ADDITIONAL SURGERIES: Rotator Cuff Surgery. SOCIAL HISTORY Never smoker. Heavy alcohol use. Patient is alcoholic. No drug use. Has social support. Has place to stay. ADDITIONAL NOTES The nursing notes have been reviewed. PHYSICAL EXAM Vital Signs: 01/14/2017 07:30 BP: 150/94. HR: 81. RR: 16. O2 saturation: 97%. Temp: 97.4 F. Have been reviewed. Hypertensive. Heart rate normal. Respiratory rate normal. Temperature normal. Oxygen saturation normal. Appearance: Alert. Oriented X3. No acute distress. ENT: Moist mucous membranes. CVS: Normal heart rate and rhythm. Heart sounds normal. Respiratory: No respiratory distress. Breath sounds normal. Neuro: Alert. Oriented X 3. Mood/affect normal. Speech normal. (Mild tremor noted). PROGRESS AND PROCEDURES Course of Care: Ativan 2mg IM given. The patient's symptoms are now gone. Physical exam findings are improved. Disposition: Discharged home in good and improved condition. CLINICAL IMPRESSION Alcohol withdrawal with irritability. No confusion, delirium, hallucinations, seizures or delirium tremens. INSTRUCTIONS No alcohol. Seek medical help to quit drinking. Your Current Medications: CONTINUE TAKING THE FOLLOWING MEDICATIONS: None*. Prescription Medications: Ativan 1 mg: take 1 orally every 6 hours as needed for anxiety. Dispense fifteen (15). No refill. Substitution is permissible. Follow-up: Follow up with your doctor today. Call for an appointment. Screening today revealed the patient's blood pressure to be in the hypertensive range. The patient should follow up with a primary care provider for blood pressure management. (Electronically signed by Pollo Beltrán Dr. 01/14/2017 8:46)
--- NOTE | 2017-01-14 08:46 | ED NURSING NOTES ---
Clinical Report - Nurses [facility] [address] [place] [place] [address] 01/14/2017 7:23 Patient: LISA ARELLANO TRIAGE Triage time 07:24. Acuity: LEVEL 3. Chief Complaint: POSSIBLE ALLERGIC REACTION. Alert. No acute distress. SEPSIS SCREEN: Sepsis Screen. Negative (no infection suspected/documented). --07:35 Pawan Finn R.N. 07:30 01/14/17. BP: 150/94. HR: 81. RR: 16. O2 saturation: 97%. Temp: 97.4 F. Pain level now 0/10. --07:35 Pawan Finn R.N. YOLANDE COMA SCORE: Yolande Coma Scale: 15- eyes open spontaneously (4); best verbal response- oriented x 4 (5); best motor response- obeys commands (6). --07:35 Pawan Finn R.N. Weight: 95.2 kg stated. Height/Length: 70 inches Per Patient. BMI: 30.1. --07:34 Pawan Finn R.N. Medications None. --07:34 Pawan Finn R.N. Allergies Librium. --07:34 Pawan Finn R.N. Flu Virus Vaccine. --07:34 Pawan Finn R.N. Medication/allergy information source: the patient. --07:35 Pawan Finn R.N. History Arrived by private vehicle. Primary physician (no pcp). ( Revisit, seen here 2 days ago for c/o etoh withdrawl. Presents today with c/o librium side effects. States he has experienced cough, shortness of breath, a rash (states rash has resolved), depression, confusion, and aggression. Last librium dose was last night.). Onset. (2 days ago). 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 SOCIAL HX: Never smoker. Alcohol use. Last drink was 3 days ago. No drug use. ABUSE ASSESSMENT: Abuse assessment: The patient was asked "Do you feel safe in your home?". No report of abuse. FALL RISK ASSESSMENT: Fall risk assessment completed. No fall risk identified. NUTRITIONAL RISK ASSESSMENT: The nutritional risk assessment revealed no deficiencies. FUNCTIONAL ASSESSMENT: Functional assessment: no impairments noted. LEARNING NEEDS ASSESSMENT: The learning needs assessment revealed no barriers. SKIN INTEGRITY ASSESSMENT: Skin integrity risk assessment completed. No skin integrity risk identified. --07:35 Pawan Finn R.N. PROBLEMS: Adverse Drug Reaction. Abdominal Pain. Depression. Alcohol Withdrawal. Alcoholism. --07:35 Pawan Finn R.N. ADDITIONAL SURGERIES: Rotator Cuff Surgery. --07:35 Pawan Finn R.N. Interventions ID band on patient. To treatment room. --07:35 Pawan Finn R.N. PHYSICAL ASSESSMENT Ambulatory to room. GENERAL / NEURO / PSYCH: Alert. The patient does not appear to be in acute distress. Oriented X 4. RESPIRATORY: No respiratory distress. Respirations not labored. No cough. CVS: Capillary refill less than 2 seconds. GI / : Abdomen nontender. SKIN: Skin is intact, warm and dry. No skin rash. --07:36 Pawan Finn R.N. NURSING PROGRESS NOTES 07:36 01/14/17. The plan of care for this patient has been created. Patient gowned. Head of bed elevated. Call light placed in reach. Bed placed in lowest position. Brakes of bed on. Patient ready for evaluation- chart flagged. --07:36 Pawan Finn R.N. 08:12 01/14/2017 Ativan (LORazepam) IM 2 mg given. Given in the left anterior lateral thigh. Allergies verified, confirmed 5 rights and sedative warning given to the patient. --08:17 Pawan Finn R.N. 08:27 01/14/17. Reassessment after medication administered. He reports no complaints, he is calm and resting quietly and he has had no adverse reaction. --08:27 Pawan Finn R.N. DISPOSITION / DISCHARGE 08:52 01/14/17. Departure time: 08. Condition at departure: improved and stable. No learning barriers present. Discharge instructions provided and reviewed with the patient. Reviewed medication(s) side effects, precautions, dosing and course information. Prescription(s) given to the patient. Patient verbalized understanding. Written instructions provided in Com[place]an. The patient was discharged by the physician. He was discharged home. He left the Emergency Department ambulatory and via private vehicle. Patient driving. --08:52 Pawan Finn R.N. 08:50 01/14/17. BP: 159/67. HR: 81. RR: 16. O2 saturation: 98% on room air. Pain level now 03/16. --08:52 Pawan Finn R.N. Locked/Released at 01/14/2017 14:16 by Pawan Finn R.N.
--- NOTE | 2017-01-14 14:17 | ED MAR SUMMARY ---
..... Medication Administration Record [facility] [address] [place] [address] Patient: LISA ARELLANO Visit ID: [id number] 36y, M Weight: 95.2 kg Height/Length: 70 in BMI: 30.1 ALLERGIES: Flu Virus Vaccine, Librium Given 08:12 01/14/2017 Pawan Finn RRadhames Medication Administered: ATIVAN [IM] (LORAZEPAM), Dose: 2 mg IM. Medication Ordered: Ativan IM 2 mg (HIGH ALERT MEDICATION, NOW).
--- NOTE | 2017-01-14 14:17 | ED DISCHARGE INSTRUCTIONS ---
Patient: LISA ARELLANO General Instructions [facility] VisitID: [id number] [place] [address] 36y, M Registration Date/Time: 01/14/2017 Alcohol withdrawal with irritability. No confusion, delirium, hallucinations, seizures or delirium tremens. INSTRUCTIONS No alcohol. Seek medical help to quit drinking. Your Current Medications: CONTINUE TAKING THE FOLLOWING MEDICATIONS: None*. Prescription Medications: Ativan 1 mg: take 1 orally every 6 hours as needed for anxiety. Dispense fifteen (15). No refill. Substitution is permissible. Follow-up: Follow up with your doctor today. Call for an appointment. Screening today revealed the patient's blood pressure to be in the hypertensive range. The patient should follow up with a primary care provider for blood pressure management. ADDITIONAL INFORMATION Alcohol Withdrawal Alcohol withdrawal symptoms occur if you have been drinking steadily for at least several days, and your body gets used to the effect of alcohol. When you suddenly stop drinking (or, even just cut down your daily intake but continue to drink), you may develop alcohol withdrawal, also called the The usual symptoms last 3-4 days and include nervousness, shakiness, nausea, sweating, sleeplessness. In severe cases hallucinations (seeing things that are not there) and seizures can occur. Home Care: You will need plenty of rest and fluids over the next several days. Eat regular meals. Of course, do not drink any more alcohol. During this time, it is best that you stay with family or friends who can help and support you. You can also admit yourself to a residential detox program. Do not drive until all symptoms are gone and you are feeling better. If you were given sedative medication to reduce your symptoms, do not take it more often than prescribed and never take it with alcohol. Follow Up: Once you have gone through the withdrawal symptoms, you have fought half of the mcclain. To avoid the risk of returning to your previous drinking pattern, it is essential that you get follow-up support and treatment. Alcoholics Anonymous offers support through a self-help fellowship. There are no dues or fees. See the Yellow Pages and call for time and place of meetings. www.aa.org Jodie offers support to families of alcohol users. [phone] www.al-anon.org National [place] On Alcoholism And Drug Dependence 605-104-7912 www.ncadd.org Residential alcohol detox programs are available. Check the Yellow Pages under Drug Abuse & Treatment Centers. Get Prompt Medical Attention if any of the following occur: Severe shakiness Hallucinations Seizure Fever over 100.5 F (38.0 C) oral Headache, confusion, extreme drowsiness, inability to awaken Increasing upper abdominal pain Repeated vomiting or vomiting blood Lorazepam Oral tablet What is this medicine? LORAZEPAM (thelma A ze chad) is a benzodiazepine. It is used to treat anxiety. How should I use this medicine? Take this medicine by mouth with a glass of water. Follow the directions on the prescription label. If it upsets your stomach, take it with food or milk. Take your medicine at regular intervals. Do not take it more often than directed. Do not stop taking except on the advice of your doctor or health career orientation teacher. Talk to your associate sales regarding the use of this medicine in children. Special care may be needed. What side effects may I notice from receiving this medicine? Side effects that you should report to your doctor or health career orientation teacher as soon as possible: changes in vision confusion depression mood changes, excitability or aggressive behavior movement difficulty, staggering or jerky movements muscle cramps restlessness weakness or tiredness Side effects that usually do not require medical attention (report to your doctor or health career orientation teacher if they continue or are bothersome): constipation or diarrhea difficulty sleeping, nightmares dizziness, drowsiness headache nausea, vomiting What may interact with this medicine? barbiturate medicines for inducing sleep or treating seizures, like phenobarbital clozapine medicines for depression, mental problems or psychiatric disturbances medicines for sleep phenytoin probenecid theophylline valproic acid What if I miss a dose? If you miss a dose, take it as soon as you can. If it is almost time for your next dose, take only that dose. Do not take double or extra doses. Where should I keep my medicine? Keep out of the reach of children. This medicine can be abused. Keep your medicine in a safe place to protect it from theft. Do not share this medicine with anyone. Selling or giving away this medicine is dangerous and against the law. Store at room temperature between 20 and 25 degrees C (68 and 77 degrees F). Protect from light. Keep container tightly closed. Throw away any unused medicine after the expiration date. What should I tell my health care provider before I take this medicine? They need to know if you have any of these conditions: alcohol or drug abuse problem bipolar disorder, depression, psychosis or other mental health condition glaucoma kidney or liver disease lung disease or breathing difficulties myasthenia gravis Parkinson's disease seizures or a history of seizures suicidal thoughts an unusual or allergic reaction to lorazepam, other benzodiazepines, foods, dyes, or preservatives or trying to get breast-feeding What should I watch for while using this medicine? Visit your doctor or health career orientation teacher for regular checks on your progress. Your body may become dependent on this medicine, ask your doctor or health career orientation teacher if you still need to take it. However, if you have been taking this medicine regularly for some time, do not suddenly stop taking it. You must gradually reduce the dose or you may get severe side effects. Ask your doctor or health career orientation teacher for advice before increasing or decreasing the dose. Even after you stop taking this medicine it can still affect your body for several days. You may get drowsy or dizzy. Do not drive, use machinery, or do anything that needs mental alertness until you know how this medicine affects you. To reduce the risk of dizzy and fainting spells, do not stand or sit up quickly, especially if you are an older patient. Alcohol may increase dizziness and drowsiness. Avoid alcoholic drinks. Do not treat yourself for coughs, colds or allergies without asking your doctor or health career orientation teacher for advice. Some ingredients can increase possible side effects. You have been given the following additional information: Alcohol Withdrawal Lorazepam Oral tablet (Electronically signed by Pollo Beltrán Dr. 01/14/2017 8:46)
--- NOTE | 2017-01-14 14:17 | ED MED RECONCILIATION SUMMARY ---
Patient: LISA ARELLANO Medication Reconciliation Report [facility] VisitID: [id number] [place] [address] 36y, M Registration Date/Time: 01/14/2017 Weight: 95.2 kg Height/Length: 70 in. BMI: 30.1 ALLERGIES: Flu Virus Vaccine, Librium The patient's Home Medications are listed below: NONE. The source(s) of the original Home Medication information: patient The following Medications were given to the patient in the Emergency Department: Ativan [IM] IM 2 mg, administered: 01/14/2017 8:12:00 AM The following Medications were prescribed to the patient: Ativan 1 mg: take 1 orally every 6 hours as needed for anxiety. Dispense fifteen (15). No refill. Substitution is permissible. -- Pollo Beltrán Dr.
--- NOTE | 2017-01-14 14:17 | ED MED RECONCILIATION SUMMARY ---
Patient: LISA ARELLANO Medication Reconciliation Report [facility] VisitID: [id number] [place] [address] 36y, M Registration Date/Time: 01/14/2017 Weight: 95.2 kg Height/Length: 70 in. BMI: 30.1 ALLERGIES: Flu Virus Vaccine, Librium The patient's Home Medications are listed below: NONE. The source(s) of the original Home Medication information: patient The following Medications were given to the patient in the Emergency Department: Ativan [IM] IM 2 mg, administered: 01/14/2017 8:12:00 AM The following Medications were prescribed to the patient: Ativan 1 mg: take 1 orally every 6 hours as needed for anxiety. Dispense fifteen (15). No refill. Substitution is permissible. -- Pollo Beltrán Dr.
--- NOTE | 2017-01-14 14:17 | ED DISCHARGE INSTRUCTIONS ---
Patient: LISA ARELLANO General Instructions [facility] VisitID: [id number] [place] [address] 36y, M Registration Date/Time: 01/14/2017 Alcohol withdrawal with irritability. No confusion, delirium, hallucinations, seizures or delirium tremens. INSTRUCTIONS No alcohol. Seek medical help to quit drinking. Your Current Medications: CONTINUE TAKING THE FOLLOWING MEDICATIONS: None*. Prescription Medications: Ativan 1 mg: take 1 orally every 6 hours as needed for anxiety. Dispense fifteen (15). No refill. Substitution is permissible. Follow-up: Follow up with your doctor today. Call for an appointment. Screening today revealed the patient's blood pressure to be in the hypertensive range. The patient should follow up with a primary care provider for blood pressure management. ADDITIONAL INFORMATION Alcohol Withdrawal Alcohol withdrawal symptoms occur if you have been drinking steadily for at least several days, and your body gets used to the effect of alcohol. When you suddenly stop drinking (or, even just cut down your daily intake but continue to drink), you may develop alcohol withdrawal, also called the The usual symptoms last 3-4 days and include nervousness, shakiness, nausea, sweating, sleeplessness. In severe cases hallucinations (seeing things that are not there) and seizures can occur. Home Care: You will need plenty of rest and fluids over the next several days. Eat regular meals. Of course, do not drink any more alcohol. During this time, it is best that you stay with family or friends who can help and support you. You can also admit yourself to a residential detox program. Do not drive until all symptoms are gone and you are feeling better. If you were given sedative medication to reduce your symptoms, do not take it more often than prescribed and never take it with alcohol. Follow Up: Once you have gone through the withdrawal symptoms, you have fought half of the mcclain. To avoid the risk of returning to your previous drinking pattern, it is essential that you get follow-up support and treatment. Alcoholics Anonymous offers support through a self-help fellowship. There are no dues or fees. See the Yellow Pages and call for time and place of meetings. www.aa.org Jodie offers support to families of alcohol users. 124.934.1628 www.al-anon.org National [place] On Alcoholism And Drug Dependence 565-490-4634 www.ncadd.org Residential alcohol detox programs are available. Check the Yellow Pages under Drug Abuse & Treatment Centers. Get Prompt Medical Attention if any of the following occur: Severe shakiness Hallucinations Seizure Fever over 100.5 F (38.0 C) oral Headache, confusion, extreme drowsiness, inability to awaken Increasing upper abdominal pain Repeated vomiting or vomiting blood Lorazepam Oral tablet What is this medicine? LORAZEPAM (thelma A ze chad) is a benzodiazepine. It is used to treat anxiety. How should I use this medicine? Take this medicine by mouth with a glass of water. Follow the directions on the prescription label. If it upsets your stomach, take it with food or milk. Take your medicine at regular intervals. Do not take it more often than directed. Do not stop taking except on the advice of your doctor or health health care assistant. Talk to your marketing graphics specialist regarding the use of this medicine in children. Special care may be needed. What side effects may I notice from receiving this medicine? Side effects that you should report to your doctor or health health care assistant as soon as possible: changes in vision confusion depression mood changes, excitability or aggressive behavior movement difficulty, staggering or jerky movements muscle cramps restlessness weakness or tiredness Side effects that usually do not require medical attention (report to your doctor or health health care assistant if they continue or are bothersome): constipation or diarrhea difficulty sleeping, nightmares dizziness, drowsiness headache nausea, vomiting What may interact with this medicine? barbiturate medicines for inducing sleep or treating seizures, like phenobarbital clozapine medicines for depression, mental problems or psychiatric disturbances medicines for sleep phenytoin probenecid theophylline valproic acid What if I miss a dose? If you miss a dose, take it as soon as you can. If it is almost time for your next dose, take only that dose. Do not take double or extra doses. Where should I keep my medicine? Keep out of the reach of children. This medicine can be abused. Keep your medicine in a safe place to protect it from theft. Do not share this medicine with anyone. Selling or giving away this medicine is dangerous and against the law. Store at room temperature between 20 and 25 degrees C (68 and 77 degrees F). Protect from light. Keep container tightly closed. Throw away any unused medicine after the expiration date. What should I tell my health care provider before I take this medicine? They need to know if you have any of these conditions: alcohol or drug abuse problem bipolar disorder, depression, psychosis or other mental health condition glaucoma kidney or liver disease lung disease or breathing difficulties myasthenia gravis Parkinson's disease seizures or a history of seizures suicidal thoughts an unusual or allergic reaction to lorazepam, other benzodiazepines, foods, dyes, or preservatives or trying to get breast-feeding What should I watch for while using this medicine? Visit your doctor or health health care assistant for regular checks on your progress. Your body may become dependent on this medicine, ask your doctor or health health care assistant if you still need to take it. However, if you have been taking this medicine regularly for some time, do not suddenly stop taking it. You must gradually reduce the dose or you may get severe side effects. Ask your doctor or health health care assistant for advice before increasing or decreasing the dose. Even after you stop taking this medicine it can still affect your body for several days. You may get drowsy or dizzy. Do not drive, use machinery, or do anything that needs mental alertness until you know how this medicine affects you. To reduce the risk of dizzy and fainting spells, do not stand or sit up quickly, especially if you are an older patient. Alcohol may increase dizziness and drowsiness. Avoid alcoholic drinks. Do not treat yourself for coughs, colds or allergies without asking your doctor or health health care assistant for advice. Some ingredients can increase possible side effects. You have been given the following additional information: Alcohol Withdrawal Lorazepam Oral tablet (Electronically signed by Pollo Beltrán Dr. 01/14/2017 8:46)
--- NOTE | 2017-01-14 14:17 | ED MAR SUMMARY ---
..... Medication Administration Record [facility] [address] [place] [place] [address] Patient: LISA ARELLANO Visit ID: [id number] 36y, M Weight: 95.2 kg Height/Length: 70 in BMI: 30.1 ALLERGIES: Flu Virus Vaccine, Librium Given 08:12 01/14/2017 Pawan Finn RRadhames Medication Administered: ATIVAN [IM] (LORAZEPAM), Dose: 2 mg IM. Medication Ordered: Ativan IM 2 mg (HIGH ALERT MEDICATION, NOW).
== END 2017-01-14 08:52 | disposition home or self-care (01) ==
LOC: ED SRH 07:21
DX: F10.239 Alcohol dependence with withdrawal, unspecified (principal); R45.4 Irritability and anger; Z88.7 Allergy status to serum and vaccine; Z88.8 Allergy status to other drugs, medicaments and biological substances

== ENCOUNTER 2017-02-07 09:57 | Emergency (ER) | payer SELFPAY ==
--- NOTE | 2017-02-07 11:17 | ED ORDER SUMMARY ---
..... Patient: LISA ARELLANO OrderSheet [facility] VisitID: [id number] [place] [address] 36y, M Registration Date/Time: 02/07/2017 ORDER SHEET Weight: 92.9 kg (stated) Allergies: Flu Shot, Librium GENERAL ORDERS: CBC w Diff Urgent (10:16 02/07/2017 Deann Drake) (Ack 10:16 Alan ER Tech1) (10:22 RMarsden R.N.) CMP Urgent (10:02/07/2017 Deann Drake) (Ack 10:16 Alan ER Tech1) (10:22 RMarsden R.N.) UA-Culture if indicated Urgent (10:02/07/2017 Deann Drake) (Ack 10:16 Alan ER Tech1) (10:22 RMarsden R.N.) PT with INR Urgent (10:02/07/2017 Deann Drake) (Ack 10:16 QUINTENurca ER Tech1) (10:22 RMarsden R.N.) Ethyl Alcohol Urgent (11:02/07/2017 Deann Drake) (Ack 11:28 Alan ER Tech1) (11:42 JSimbeck R.N.) Urine Drug Screen Urgent (11:02/07/2017 Deann Drake) (Ack 11:28 Alan ER Tech1) (11:42 JSimbeck R.N.) Acetaminophen Level Urgent (11:02/07/2017 Deann Drake) (Ack 11:28 QUINTENurca ER Tech1) (11:42 JSimbeck R.N.) Salicylate Level Urgent (11:02/07/2017 Deann Drake) (Ack 11:28 Alan ER Tech1) (11:42 JSimbeck R.N.) MEDICATION ORDERS: Valium PO 10 mg (HIGH ALERT MEDICATION, NOW) (10:15 02/07/2017 Deann Drkae) (Ack 10:23 RMarsden R.N.) (10:25 RMarsden R.N.) Valium PO 10 mg (HIGH ALERT MEDICATION, NOW) (14:13 02/07/2017 Felipe R.N. verbal order read back to Deann Drake) (14:14 RMisabel RMaryN.) Valium PO 10 mg (HIGH ALERT MEDICATION, NOW) (17:34 02/07/2017 Deann Drake) (Ack 17:36 RMarsden R.N.) (17:40 RMarsden R.N.) IV FLUIDS: ORDER SHEET NOTES: [Electronically signed by Modesta Smith R.N. (19:26 02/07/2017)] [Electronically signed by Yuniel Flores Dr. (16:35 02/11/2017)] [Electronically locked/signed by Modesta Smiht R.N. (:02/07/2017)]
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
--- NOTE | 2017-02-07 11:17 | ED ORDER SUMMARY ---
..... Patient: LISA ARELLANO OrderSheet [facility] VisitID: [id number] [place] [address] 36y, M Registration Date/Time: 02/07/2017 ORDER SHEET Weight: 92.9 kg (stated) Allergies: Flu Shot, Librium GENERAL ORDERS: CBC w Diff Urgent (10:16 02/07/2017 Deann Drake) (Ack 10:16 Alan ER Tech1) (10:22 RMarsden R.N.) CMP Urgent (10:02/07/2017 Deann Drake) (Ack 10:16 Alan ER Tech1) (10:22 RMarsden R.N.) UA-Culture if indicated Urgent (10:02/07/2017 Deann Drake) (Ack 10:16 Alan ER Tech1) (10:22 RMarsden R.N.) PT with INR Urgent (10:02/07/2017 Deann Drake) (Ack 10:16 QUINTENurca ER Tech1) (10:22 RMarsden R.N.) Ethyl Alcohol Urgent (11:02/07/2017 Deann Drake) (Ack 11:28 Alan ER Tech1) (11:42 JSimbeck R.N.) Urine Drug Screen Urgent (11:02/07/2017 Deann Drake) (Ack 11:28 Alan ER Tech1) (11:42 JSimbeck R.N.) Acetaminophen Level Urgent (11:02/07/2017 Deann Drake) (Ack 11:28 QUINTENurca ER Tech1) (11:42 JSimbeck R.N.) Salicylate Level Urgent (11:02/07/2017 Deann Drake) (Ack 11:28 Alan ER Tech1) (11:42 JSimbeck R.N.) MEDICATION ORDERS: Valium PO 10 mg (HIGH ALERT MEDICATION, NOW) (10:15 02/07/2017 Deann Drake) (Ack 10:23 RMarsden R.N.) (10:25 RMarsden R.N.) Valium PO 10 mg (HIGH ALERT MEDICATION, NOW) (14:13 02/07/2017 Felipe R.N. verbal order read back to Deann Drake) (14:14 RMisabel RMaryN.) Valium PO 10 mg (HIGH ALERT MEDICATION, NOW) (17:34 02/07/2017 Deann Drake) (Ack 17:36 RMarsden R.N.) (17:40 RMarsden R.N.) IV FLUIDS: ORDER SHEET NOTES: [Electronically signed by Modesta Smith R.N. (19:26 02/07/2017)] [Electronically signed by Yuniel Flores Dr. (16:35 02/11/2017)] [Electronically locked/signed by Modesta Smith R.N. (:02/07/2017)]
--- NOTE | 2017-02-07 11:17 | ED NURSING NOTES ---
Clinical Report - Nurses [facility] [address] [place] [address] 02/07/2017 9:58 Patient: LISA ARELLANO TRIAGE Triage time 10:02. Acuity: LEVEL 3. Chief Complaint: (alcohol withdrawal). 10:17 02/07/17. Alert. SEPSIS SCREEN: Sepsis Screen. Negative (no infection suspected/documented). YOLANDE COMA SCORE: Yolande Coma Scale: 15- eyes open spontaneously (4); best verbal response- oriented x 4 (5); best motor response- obeys commands (6). --10:17 Modesta Smith R.N. 10:04 02/07/17. BP: 150/100. HR: 105. RR: 17. O2 saturation: 97%. Temp: 98.9 F. --10:17 Modesta Smith R.N. Weight: 92.9 kg stated. Height/Length: 70 inches Per Patient. BMI: 29.4. --10:16 Modesta Smith R.N. Medications None. --10:16 Modesta Smith R.N. Allergies Flu Shot. --10:16 Modesta Smith R.N. Librium. --10:16 Modesta Smith R.N. History Arrived by private vehicle. Historian: patient. Primary physician (None reported). This started yesterday. ( Patient states "I've been drinking a lot every day for the past 4 months. I want to get better but I need help." He reports that he came to this hospital several weeks ago and received ativan for withdrawals. He reports the ativan worked, but he started drinking again when he went to lunch with his .). ( shakiness). PAST MEDICAL HX: Immunizations: up-to-date. SOCIAL HX: Never smoker. Heavy alcohol use; consumes a large amount of beer. (Patient reports drinking 20-25 beers per day). History of drug use. 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 ( Patient states his last drink was 3 hours ago). FALL RISK ASSESSMENT: Fall risk assessment completed. No fall risk identified. NUTRITIONAL RISK ASSESSMENT: The nutritional risk assessment revealed no deficiencies. FUNCTIONAL ASSESSMENT: Functional assessment: no impairments noted. LEARNING NEEDS ASSESSMENT: The learning needs assessment revealed no barriers. SKIN INTEGRITY ASSESSMENT: Skin integrity risk assessment completed. No skin integrity risk identified. --10:17 Modesta Smith R.N. PROBLEMS: Adverse Drug Reaction. Abdominal Pain. Depression. Alcohol Withdrawal. Alcoholism. --10:16 Modesta Smith R.N. ADDITIONAL SURGERIES: Rotator Cuff Surgery. --10:16 Modesta Smith R.N. Interventions ID band on patient. To treatment room. --10:17 Modesta Smith R.N. NURSING PROGRESS NOTES 10:25 02/07/2017 Valium (Diazepam) PO Tablets 10 mg given. Allergies verified, confirmed 5 rights and sedative warning given to the patient. --10:25 Modesta Smith R.N. 11:30. ( When ED Physician and this RN were in the room discharging the patient, the patient stated, "I just want to kill myself." The ED MD explained that we are unable to discharge the patient if he feels suicidal. The patient states "Yeah, I am, I just don't know what to do and I don't want to live anymore." Patient agreed to stay in the ED for further evaluation. This RN moved the patient to room 14.). --11:46 Modesta Smith R.N. ( Patient's belongings (2 phones, pants, jacket, t-shirt and hat) were placed in 2 patient belonging bags and stored in locker #3 with lock #3. Patient is now in room talking to his mother with ED phone. He verbalized consent for this RN to update his mother or his on his care plan.). --11:48 Modesta Smith R.N. 11:23 02/07/17. BP: 143/88. HR: 82. RR: 16. O2 saturation: 100%. Pain level now: 0/10. --11:50 Modesta Smith R.N. Reassurance given. --11:54 Modesta Smith R.N. ( Patient ate all of his lunch. Blood Alcohol level 0.096). --12:20 Modesta Smith R.N. 12:47 02/07/17. BP: 130/83. HR: 106. RR: 15. O2 saturation: 94%. Pain level now: 0/10. --12:48 Modesta Smith R.N. 13:05 02/07/17. BP: 134/89 (regular adult cuff) taken on the left arm, while lying. HR: 108. RR: 16. O2 saturation: 97% on room air. Pain level now: 6/10. Additional comments: abd pain. --13:09 Layo Carty R.N. 14:03 02/07/17. BP: 126/89. HR: 92. RR: 15. O2 saturation: 95%. Pain level now: 6. --14:04 Modesta Smith R.N. Patient informed about reason for wait and about plan of care. --14:04 Modesta Smith R.N. 14:14 02/07/2017 Valium (Diazepam) PO Tablets 10 mg given. Allergies verified, confirmed 5 rights and sedative warning given to the patient. --14:14 Modesta Smith R.N. 14:58 02/07/17. BP: 139/86. HR: 96. RR: 15. O2 saturation: 98%. Pain level now: 0/10. --15:08 Modesta Smith R.N. 15:09 02/07/17. Reassurance given. ( Patient states he is feeling much better after receiving valium.). --15:09 Modesta Smith R.N. ( PAT team here at 15:17.). --15:50 Modesta Smith R.N. ( PAT steam cleaner still with pt.). --16:17 Layo Carty R.N. ( PAT steam cleaner is still at the bedside.). --17:18 Layo Carty R.N. 17:31 02/07/17. BP: 126/81. HR: 98. RR: 16. O2 saturation: 92%. Temp: deferred. Pain level now: 0/10. --17:32 Modesta Smith R.N. 17:32 02/07/17. ( Patient states "I feel shaky and sweaty"). --17:32 Modesta Smith R.N. 17:40 02/07/2017 Valium (Diazepam) PO Tablets 10 mg given. Allergies verified, confirmed 5 rights and sedative warning given to the patient. --17:40 Modesta Smith R.N. ( PAT team in room). --17:52 Modesta Smith R.N. 18:26 02/07/17. BP: 154/104. HR: 116. RR: 15. O2 saturation: 97%. Temp: 98.1 F. Pain level now: 0/10. --18:27 Modesta Smith R.N. 19:00 02/07/17. BP: 149/90. HR: 109. RR: 15. O2 saturation: 94%. Pain level now: 0/10. --19:05 Modesta Smith R.N. DISPOSITION / DISCHARGE 07:16. Departure time: 07:16. Transferred to [facility]. Summary of care provided to transport team, patient and transfer facility. Transported via ambulance by [facility]. Report was given to a nurse via a phone call. Report included patient's care, treatment, medications, reviewed medication reconcilliation, and condition (including any recent changes or anticipated changes). All questions were answered. Report was acknowledged. (to [place] RN). --19:25 Modesta Smith R.N. 19:05 02/07/17. Temp: 98.9 F. --19:25 Modesta Smith R.N. 19:00 02/07/17. BP: 149/90. HR: 109. RR: 15. O2 saturation: 94%. Pain level now: 0/10. --19:25 Modesta Smith R.N. Patient's personal items include: shirt, pants, coat and cell phone; items were placed in belongings bag, given to the patient and transported with the patient. --19:25 Modesta Smith R.N. Locked/Released at 02/07/2017 19:26 by Modesta Smith R.N.
--- NOTE | 2017-02-07 11:17 | ED NURSING NOTES ---
Clinical Report - Nurses [facility] [address] [place] [address] 02/07/2017 9:58 Patient: LISA ARELLANO TRIAGE Triage time 10:02. Acuity: LEVEL 3. Chief Complaint: (alcohol withdrawal). 10:17 02/07/17. Alert. SEPSIS SCREEN: Sepsis Screen. Negative (no infection suspected/documented). YOLANDE COMA SCORE: Yolande Coma Scale: 15- eyes open spontaneously (4); best verbal response- oriented x 4 (5); best motor response- obeys commands (6). --10:17 Modesta Smith R.N. 10:04 02/07/17. BP: 150/100. HR: 105. RR: 17. O2 saturation: 97%. Temp: 98.9 F. --10:17 Modesta Smith R.N. Weight: 92.9 kg stated. Height/Length: 70 inches Per Patient. BMI: 29.4. --10:16 Modesta Smith R.N. Medications None. --10:16 Modesta Smith R.N. Allergies Flu Shot. --10:16 Modesta Smith R.N. Librium. --10:16 Modesta Smith R.N. History Arrived by private vehicle. Historian: patient. Primary physician (None reported). This started yesterday. ( Patient states "I've been drinking a lot every day for the past 4 months. I want to get better but I need help." He reports that he came to this hospital several weeks ago and received ativan for withdrawals. He reports the ativan worked, but he started drinking again when he went to lunch with his .). ( shakiness). PAST MEDICAL HX: Immunizations: up-to-date. SOCIAL HX: Never smoker. Heavy alcohol use; consumes a large amount of beer. (Patient reports drinking 20-25 beers per day). History of drug use. 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 ( Patient states his last drink was 3 hours ago). FALL RISK ASSESSMENT: Fall risk assessment completed. No fall risk identified. NUTRITIONAL RISK ASSESSMENT: The nutritional risk assessment revealed no deficiencies. FUNCTIONAL ASSESSMENT: Functional assessment: no impairments noted. LEARNING NEEDS ASSESSMENT: The learning needs assessment revealed no barriers. SKIN INTEGRITY ASSESSMENT: Skin integrity risk assessment completed. No skin integrity risk identified. --10:17 Modesta Smith R.N. PROBLEMS: Adverse Drug Reaction. Abdominal Pain. Depression. Alcohol Withdrawal. Alcoholism. --10:16 Modesta Smith R.N. ADDITIONAL SURGERIES: Rotator Cuff Surgery. --10:16 Modesta Smith R.N. Interventions ID band on patient. To treatment room. --10:17 Modesta Smith R.N. NURSING PROGRESS NOTES 10:25 02/07/2017 Valium (Diazepam) PO Tablets 10 mg given. Allergies verified, confirmed 5 rights and sedative warning given to the patient. --10:25 Modesta Smith R.N. 11:30. ( When ED Physician and this RN were in the room discharging the patient, the patient stated, "I just want to kill myself." The ED MD explained that we are unable to discharge the patient if he feels suicidal. The patient states "Yeah, I am, I just don't know what to do and I don't want to live anymore." Patient agreed to stay in the ED for further evaluation. This RN moved the patient to room 14.). --11:46 Modesta Smith R.N. ( Patient's belongings (2 phones, pants, jacket, t-shirt and hat) were placed in 2 patient belonging bags and stored in locker #3 with lock #3. Patient is now in room talking to his mother with ED phone. He verbalized consent for this RN to update his mother or his on his care plan.). --11:48 Modesta Smith R.N. 11:23 02/07/17. BP: 143/88. HR: 82. RR: 16. O2 saturation: 100%. Pain level now: 0/10. --11:50 Modesta Smith R.N. Reassurance given. --11:54 Modesta Smith R.N. ( Patient ate all of his lunch. Blood Alcohol level 0.096). --12:20 Modesta Smith R.N. 12:47 02/07/17. BP: 130/83. HR: 106. RR: 15. O2 saturation: 94%. Pain level now: 0/10. --12:48 Modesta Smith R.N. 13:05 02/07/17. BP: 134/89 (regular adult cuff) taken on the left arm, while lying. HR: 108. RR: 16. O2 saturation: 97% on room air. Pain level now: 6/10. Additional comments: abd pain. --13:09 Layo Carty R.N. 14:03 02/07/17. BP: 126/89. HR: 92. RR: 15. O2 saturation: 95%. Pain level now: 6. --14:04 Modesta Smith R.N. Patient informed about reason for wait and about plan of care. --14:04 Modesta Smith R.N. 14:14 02/07/2017 Valium (Diazepam) PO Tablets 10 mg given. Allergies verified, confirmed 5 rights and sedative warning given to the patient. --14:14 Modesta Smith R.N. 14:58 02/07/17. BP: 139/86. HR: 96. RR: 15. O2 saturation: 98%. Pain level now: 0/10. --15:08 Modesta Smith R.N. 15:09 02/07/17. Reassurance given. ( Patient states he is feeling much better after receiving valium.). --15:09 Modesta Smith R.N. ( PAT team here at 15:17.). --15:50 Modesta Smith R.N. ( PAT staff nurse icu resource team still with pt.). --16:17 Layo Carty R.N. ( PAT staff nurse icu resource team is still at the bedside.). --17:18 Layo Carty R.N. 17:31 02/07/17. BP: 126/81. HR: 98. RR: 16. O2 saturation: 92%. Temp: deferred. Pain level now: 0/10. --17:32 Modesta Smith R.N. 17:32 02/07/17. ( Patient states "I feel shaky and sweaty"). --17:32 Modesta Smith R.N. 17:40 02/07/2017 Valium (Diazepam) PO Tablets 10 mg given. Allergies verified, confirmed 5 rights and sedative warning given to the patient. --17:40 Modesta Smith R.N. ( PAT team in room). --17:52 Modesta Smith R.N. 18:26 02/07/17. BP: 154/104. HR: 116. RR: 15. O2 saturation: 97%. Temp: 98.1 F. Pain level now: 0/10. --18:27 Modesta Smith R.N. 19:00 02/07/17. BP: 149/90. HR: 109. RR: 15. O2 saturation: 94%. Pain level now: 0/10. --19:05 Modesta Smith R.N. DISPOSITION / DISCHARGE 07:16. Departure time: 07:16. Transferred to [facility]. Summary of care provided to transport team, patient and transfer facility. Transported via ambulance by [facility]. Report was given to a nurse via a phone call. Report included patient's care, treatment, medications, reviewed medication reconcilliation, and condition (including any recent changes or anticipated changes). All questions were answered. Report was acknowledged. (to [place] RN). --19:25 Modesta Smith R.N. 19:05 02/07/17. Temp: 98.9 F. --19:25 Modesta Smith R.N. 19:00 02/07/17. BP: 149/90. HR: 109. RR: 15. O2 saturation: 94%. Pain level now: 0/10. --19:25 Modesta Smith R.N. Patient's personal items include: shirt, pants, coat and cell phone; items were placed in belongings bag, given to the patient and transported with the patient. --19:25 Modesta Smith R.N. Locked/Released at 02/07/2017 19:26 by Modesta Smith R.N.
--- NOTE | 2017-02-11 16:35 | ED DISCHARGE INSTRUCTIONS ---
Patient: LISA ARELLANO General Instructions [facility] VisitID: [id number] [place] [address] 36y, M Registration Date/Time: 02/07/2017 02/07/2017 10:04 BP: 150/100. HR: 105. RR: 17. O2 saturation: 97%. Temp: 98.9 F. Adjustment disorder with depressed mood (acute). Hypertensive. Oxygen saturation normal. Substance abuse- alcohol (acute). Essential hypertension. acute suicidal ideation. INSTRUCTIONS Warnings: SEDATIVE MEDICATION: You were given sedative medication during your visit. Do not drive or operate dangerous machinery. CONTROLLED SUBSTANCE WARNINGS. GENERAL WARNINGS: Return or contact your physician immediately if your condition worsens or changes unexpectedly, if not improving as expected, or if other problems arise. Specifically return if pain, vomiting, bleeding, breathing difficulty or fever. thoughts of harming self or others, hallucinations, delusions, or other concerns. Your Current Medications: CONTINUE TAKING THE FOLLOWING MEDICATIONS: None*. Prescription Medications: Valium 5 mg: take 1 orally every 8 hours for 2 days. No refill. Substitution is permissible. (symptoms of alcohol withdrawal. Disp 6 tabs.) Follow-up: Return to the emergency department as needed. Follow up with your doctor in three days. Reason for referral: recheck today's concerns. Summary of care provided to patient via paper. Screening today revealed the patient's blood pressure to be in the normal range. The patient should follow up with a primary care provider for blood pressure management. Understanding of the discharge instructions verbalized by patient. ADDITIONAL INFORMATION Alcohol Withdrawal Alcohol withdrawal symptoms occur if you have been drinking steadily for at least several days, and your body gets used to the effect of alcohol. When you suddenly stop drinking (or, even just cut down your daily intake but continue to drink), you may develop alcohol withdrawal, also called the The usual symptoms last 3-4 days and include nervousness, shakiness, nausea, sweating, sleeplessness. In severe cases hallucinations (seeing things that are not there) and seizures can occur. Home Care: You will need plenty of rest and fluids over the next several days. Eat regular meals. Of course, do not drink any more alcohol. During this time, it is best that you stay with family or friends who can help and support you. You can also admit yourself to a residential detox program. Do not drive until all symptoms are gone and you are feeling better. If you were given sedative medication to reduce your symptoms, do not take it more often than prescribed and never take it with alcohol. Follow Up: Once you have gone through the withdrawal symptoms, you have fought half of the mccl[place]. To avoid the risk of returning to your previous drinking pattern, it is essential that you get follow-up support and treatment. Alcoholics Anonymous offers support through a self-help fellowship. There are no dues or fees. See the Yellow Pages and call for time and place of meetings. www.aa.org [employer] offers support to families of alcohol users. 518.539.8594 www.al-anon.org [employer] [place] On Alcoholism And Drug Dependence 124-514-2322 www.ncadd.org Residential alcohol detox programs are available. Check the Yellow Pages under Drug Abuse & Treatment Centers. Get Prompt Medical Attention if any of the following occur: Severe shakiness Hallucinations Seizure Fever over 100.5 F (38.0 C) oral Headache, confusion, extreme drowsiness, inability to awaken Increasing upper abdominal pain Repeated vomiting or vomiting blood Drug Abuse Use and abuse of such drugs as marijuana, amphetamines (speed, crank), cocaine, heroin or prescription pain medicines (Vicodin, codeine), sedatives and sleeping pills (Valium, Klonopin), PCP, mescaline and LSD may lead to addiction or dependence. Once this occurs, you are at greater risk for any of the following: Craving for the drug and unable to stop using the drug even though you think you want to stop (psychological dependence) Drug withdrawal symptoms if you stop taking the drug (physical dependence) Loss of your job or your family Arrest, conviction and custodial sentence for possession of an illegal substance or for driving under the influence of such a substance Accidental injuries to yourself or others while you are under the influence of the drug (in a car or at home). HIV infection (much greater risk if you use IV drugs) Other sexually transmitted diseases (herpes, chlamydia, gonorrhea and others) Severe and fatal infection of the heart valves (if you use IV drugs) Stroke, heart attack, hepatitis B or C, kidney failure from overdose Home Care: Admit you have a drug problem. Ask for help from your family and close friends. Seek professional help. This could be in the form of individual psychotherapy or counseling or an outpatient, inpatient, or residential drug treatment program. Join a self-help group for drug abuse. Avoid friends who abuse drugs themselves or tempt you to continue abusing drugs. Eat a balanced diet and begin a regular exercise program. Follow Up with your doctor or as advised by our staff. Contact one of the resources below for help. [employer] [place] on Alcoholism and Drug Dependence www.ncadd.org 118-688-ATWK Narcotics Anonymous www.na.org 251-212-4006 Collect Alcohol and Substance Abuse Information Center (for referral to treatment programs) www.BabyList 886-149-6584 Get Prompt Medical Attention if any of the following occur: Agitation, anxiety, unable to sleep Unintended weight loss (more than 10 to 15 pounds over 3 months) Seizure Chest pain Fever of 100.4F (38C) or higher, or as directed by your healthcare provider Excess drowsiness or inability to be awakened Shortness of breath Slow breathing under 8 breaths per minute Cough with colored sputum Redness, swelling or tenderness at an injection site High Blood Pressure -- To Be Confirmed [No Tx] Your blood pressure was higher today than normal. Sometimes anxiety or pain can cause a temporary rise in blood pressure that later returns to normal. If your blood pressure is high on one measurement, this does not mean that you have hypertension (a chronic illness). However, you must have your blood pressure measured again within the next few days to find out if its still high. A normal blood pressure is 120/80 or less. The first (top) number is the "systolic" pressure. The second (bottom) number is the "diastolic" pressure. Hypertension exists when either the top number is 140 or higher, OR the bottom number is 90 or higher on repeated measurements. Blood pressure in the range of 120-140 (systolic) or 80-89 (diastolic) is considered "pre-hypertension". This means your are at risk for getting hypertension. You should have regular blood pressure checks to be sure your blood pressure is not rising. Home Care: Measure your blood pressure on 3 different days and write down the results. This can be done at your doctor's office or this facility. Some pharmacies and grocery stores offer automated blood pressure machines for your use. Follow Up: If your blood pressure is "high" (over 120/80) on 2 out of 3 days, you will need to follow up with your doctor for further evaluation and treatment. DO NOT PUT THIS OFF! Untreated high blood pressure increases the risk for heart attack, also known as acute myocardial infarction, or AMI, and stroke. It is a treatable condition. Get Prompt Medical Attention if any of the following occur: Chest pain or shortness of breath Severe headache Throbbing or rushing sound in the ears Nosebleed Sudden severe abdominal pain Extreme drowsiness, confusion or fainting Dizziness or vertigo (dizziness with spinning sensation) Weakness of an arm or leg or one side of the face Difficulty with speech or vision Adjustment Disorder An adjustment disorder is a condition that results from having a hard time coping with the normal stresses of life. You may feel you have too much to do and cant get it all done. These feelings may be triggered by divorce, job loss, someone you know dying, or by a positive event like getting a new job or getting . These feelings may interfere with your relationships at home and at work. With this condition, it is common to feel sad, guilty, hopeless and restless. These feelings may continue for weeks or months. It can be helpful to identify what is causing the additional stress and takes steps to get extra support. If new stressful events do not occur, it is likely that you will start feeling better within six months. Home Care: If you have been given a prescription for medicine, take it as directed. It helps to talk about your feelings and thoughts with family or friends that understand and support you. Follow Up with your doctor or therapist as advised by our staff. Let them know if this condition lasts more than six months without sign of improvement. For more information, contact the National [place] on Mental Illness at 227-219-5038 or visit www.tyrese.org. Get Prompt Medical Attention if any of the following occur: Worsening depression or anxiety Feeling out of control Thoughts of harming yourself or another Being unable to care for yourself Diazepam Oral tablet What is this medicine? DIAZEPAM (dye AZ e chad) is a benzodiazepine. It is used to treat anxiety and nervousness. It also can help treat alcohol withdrawal, relax muscles, and treat certain types of seizures. How should I use this medicine? Take this medicine by mouth with a glass of water. Follow the directions on the prescription label. If this medicine upsets your stomach, take it with food or milk. Take your doses at regular intervals. Do not take your medicine more often than directed. If you have been taking this medicine regularly for some time, do not suddenly stop taking it. You must gradually reduce the dose or you may get severe side effects. Ask your doctor or health care information associate for advice. Even after you stop taking this medicine it can still affect your body for several days. Talk to your miniature model maker regarding the use of this medicine in children. Special care may be needed. What side effects may I notice from receiving this medicine? Side effects that you should report to your doctor or health care information associate as soon as possible: allergic reactions like skin rash, itching or hives, swelling of the face, lips, or tongue angry, confused, depressed, other mood changes breathing problems feeling faint or lightheaded, falls muscle cramps problems with balance, talking, walking restlessness tremors trouble passing urine or change in the amount of urine unusually weak or tired Side effects that usually do not require medical attention (report to your doctor or health care information associate if they continue or are bothersome): difficulty sleeping, nightmares dizziness, drowsiness, clumsiness, or unsteadiness, a hangover effect headache nausea, vomiting What may interact with this medicine? cimetidine grapefruit juice herbal or dietary supplements like kava kava, melatonin, Jonatan's Wort, or valerian medicines for anxiety or sleeping problems, like alprazolam, lorazepam, or triazolam medicines for depression, mental problems or psychiatric disturbances medicines for HIV infection or AIDS prescription pain medicines rifampin, rifapentine, or rifabutin some medicines for seizures like carbamazepine, phenobarbital, phenytoin, or primidone What if I miss a dose? If you miss a dose, take it as soon as you can. If it is almost time for your next dose, take only that dose. Do not take double or extra doses. Where should I keep my medicine? Keep out of the reach of children. This medicine can be abused. Keep your medicine in a safe place to protect it from theft. Do not share this medicine with anyone. Selling or giving away this medicine is dangerous and against the law. Store at room temperature between 15 and 30 degrees C (59 and 86 degrees F). Protect from light. Keep container tightly closed. Throw away any unused medicine after the expiration date. What should I tell my health care provider before I take this medicine? They need to know if you have any of these conditions an alcohol or drug abuse problem bipolar disorder, depression, psychosis or other mental health condition glaucoma kidney or liver disease lung or breathing disease myasthenia gravis Parkinson's disease seizures or a history of seizures suicidal thoughts an unusual or allergic reaction to diazepam, other benzodiazepines, foods, dyes, or preservatives or trying to get breast-feeding What should I watch for while using this medicine? Visit your doctor or health care information associate for regular checks on your progress. Your body can become dependent on this medicine. Ask your doctor or health care information associate if you still need to take it. You may get drowsy or dizzy. Do not drive, use machinery, or do anything that needs mental alertness until you know how this medicine affects you. To reduce the risk of dizzy and fainting spells, do not stand or sit up quickly, especially if you are an older patient. Alcohol may increase dizziness and drowsiness. Avoid alcoholic drinks. Do not treat yourself for coughs, colds or allergies without asking your doctor or health care information associate for advice. Some ingredients can increase possible side effects. You have been given the following additional information: Alcohol Withdrawal Drug Abuse Hypertension, To Be Confirmed Adjustment Disorder Diazepam Oral tablet (Electronically signed by Yuniel Flores Dr. 02/11/2017 16:35)
--- NOTE | 2017-02-11 16:35 | ED DISCHARGE INSTRUCTIONS ---
Patient: LISA ARELLANO General Instructions [facility] VisitID: [id number] [place] [address] 36y, M Registration Date/Time: 02/07/2017 02/07/2017 10:04 BP: 150/100. HR: 105. RR: 17. O2 saturation: 97%. Temp: 98.9 F. Adjustment disorder with depressed mood (acute). Hypertensive. Oxygen saturation normal. Substance abuse- alcohol (acute). Essential hypertension. acute suicidal ideation. INSTRUCTIONS Warnings: SEDATIVE MEDICATION: You were given sedative medication during your visit. Do not drive or operate dangerous machinery. CONTROLLED SUBSTANCE WARNINGS. GENERAL WARNINGS: Return or contact your physician immediately if your condition worsens or changes unexpectedly, if not improving as expected, or if other problems arise. Specifically return if pain, vomiting, bleeding, breathing difficulty or fever. thoughts of harming self or others, hallucinations, delusions, or other concerns. Your Current Medications: CONTINUE TAKING THE FOLLOWING MEDICATIONS: None*. Prescription Medications: Valium 5 mg: take 1 orally every 8 hours for 2 days. No refill. Substitution is permissible. (symptoms of alcohol withdrawal. Disp 6 tabs.) Follow-up: Return to the emergency department as needed. Follow up with your doctor in three days. Reason for referral: recheck today's concerns. Summary of care provided to patient via paper. Screening today revealed the patient's blood pressure to be in the normal range. The patient should follow up with a primary care provider for blood pressure management. Understanding of the discharge instructions verbalized by patient. ADDITIONAL INFORMATION Alcohol Withdrawal Alcohol withdrawal symptoms occur if you have been drinking steadily for at least several days, and your body gets used to the effect of alcohol. When you suddenly stop drinking (or, even just cut down your daily intake but continue to drink), you may develop alcohol withdrawal, also called the The usual symptoms last 3-4 days and include nervousness, shakiness, nausea, sweating, sleeplessness. In severe cases hallucinations (seeing things that are not there) and seizures can occur. Home Care: You will need plenty of rest and fluids over the next several days. Eat regular meals. Of course, do not drink any more alcohol. During this time, it is best that you stay with family or friends who can help and support you. You can also admit yourself to a residential detox program. Do not drive until all symptoms are gone and you are feeling better. If you were given sedative medication to reduce your symptoms, do not take it more often than prescribed and never take it with alcohol. Follow Up: Once you have gone through the withdrawal symptoms, you have fought half of the mcclain. To avoid the risk of returning to your previous drinking pattern, it is essential that you get follow-up support and treatment. Alcoholics Anonymous offers support through a self-help fellowship. There are no dues or fees. See the Yellow Pages and call for time and place of meetings. www.aa.org [employer] offers support to families of alcohol users. 402.603.4475 www.al-anon.org National [employer] On Alcoholism And Drug Dependence 526-725-5947 www.ncadd.org Residential alcohol detox programs are available. Check the Yellow Pages under Drug Abuse & Treatment Centers. Get Prompt Medical Attention if any of the following occur: Severe shakiness Hallucinations Seizure Fever over 100.5 F (38.0 C) oral Headache, confusion, extreme drowsiness, inability to awaken Increasing upper abdominal pain Repeated vomiting or vomiting blood Drug Abuse Use and abuse of such drugs as marijuana, amphetamines (speed, crank), cocaine, heroin or prescription pain medicines (Vicodin, codeine), sedatives and sleeping pills (Valium, Klonopin), PCP, mescaline and LSD may lead to addiction or dependence. Once this occurs, you are at greater risk for any of the following: Craving for the drug and unable to stop using the drug even though you think you want to stop (psychological dependence) Drug withdrawal symptoms if you stop taking the drug (physical dependence) Loss of your job or your family Arrest, conviction and assisted sentence for possession of an illegal substance or for driving under the influence of such a substance Accidental injuries to yourself or others while you are under the influence of the drug (in a car or at home). HIV infection (much greater risk if you use IV drugs) Other sexually transmitted diseases (herpes, chlamydia, gonorrhea and others) Severe and fatal infection of the heart valves (if you use IV drugs) Stroke, heart attack, hepatitis B or C, kidney failure from overdose Home Care: Admit you have a drug problem. Ask for help from your family and close friends. Seek professional help. This could be in the form of individual psychotherapy or counseling or an outpatient, inpatient, or residential drug treatment program. Join a self-help group for drug abuse. Avoid friends who abuse drugs themselves or tempt you to continue abusing drugs. Eat a balanced diet and begin a regular exercise program. Follow Up with your doctor or as advised by our staff. Contact one of the resources below for help. National [employer] on Alcoholism and Drug Dependence www.ncadd.org 431-710-MNJI Narcotics Anonymous www.na.org 559-517-3238 [employer] Alcohol and Substance Abuse Information Center (for referral to treatment programs) www.[employer] 293-100-7149 Get Prompt Medical Attention if any of the following occur: Agitation, anxiety, unable to sleep Unintended weight loss (more than 10 to 15 pounds over 3 months) Seizure Chest pain Fever of 100.4F (38C) or higher, or as directed by your healthcare provider Excess drowsiness or inability to be awakened Shortness of breath Slow breathing under 8 breaths per minute Cough with colored sputum Redness, swelling or tenderness at an injection site High Blood Pressure -- To Be Confirmed [No Tx] Your blood pressure was higher today than normal. Sometimes anxiety or pain can cause a temporary rise in blood pressure that later returns to normal. If your blood pressure is high on one measurement, this does not mean that you have hypertension (a chronic illness). However, you must have your blood pressure measured again within the next few days to find out if its still high. A normal blood pressure is 120/80 or less. The first (top) number is the "systolic" pressure. The second (bottom) number is the "diastolic" pressure. Hypertension exists when either the top number is 140 or higher, OR the bottom number is 90 or higher on repeated measurements. Blood pressure in the range of 120-140 (systolic) or 80-89 (diastolic) is considered "pre-hypertension". This means your are at risk for getting hypertension. You should have regular blood pressure checks to be sure your blood pressure is not rising. Home Care: Measure your blood pressure on 3 different days and write down the results. This can be done at your doctor's office or this facility. Some pharmacies and grocery stores offer automated blood pressure machines for your use. Follow Up: If your blood pressure is "high" (over 120/80) on 2 out of 3 days, you will need to follow up with your doctor for further evaluation and treatment. DO NOT PUT THIS OFF! Untreated high blood pressure increases the risk for heart attack, also known as acute myocardial infarction, or AMI, and stroke. It is a treatable condition. Get Prompt Medical Attention if any of the following occur: Chest pain or shortness of breath Severe headache Throbbing or rushing sound in the ears Nosebleed Sudden severe abdominal pain Extreme drowsiness, confusion or fainting Dizziness or vertigo (dizziness with spinning sensation) Weakness of an arm or leg or one side of the face Difficulty with speech or vision Adjustment Disorder An adjustment disorder is a condition that results from having a hard time coping with the normal stresses of life. You may feel you have too much to do and cant get it all done. These feelings may be triggered by divorce, job loss, someone you know dying, or by a positive event like getting a new job or getting . These feelings may interfere with your relationships at home and at work. With this condition, it is common to feel sad, guilty, hopeless and restless. These feelings may continue for weeks or months. It can be helpful to identify what is causing the additional stress and takes steps to get extra support. If new stressful events do not occur, it is likely that you will start feeling better within six months. Home Care: If you have been given a prescription for medicine, take it as directed. It helps to talk about your feelings and thoughts with family or friends that understand and support you. Follow Up with your doctor or therapist as advised by our staff. Let them know if this condition lasts more than six months without sign of improvement. For more information, contact the National [place] on Mental Illness at 435-673-6861 or visit www.tyrese.org. Get Prompt Medical Attention if any of the following occur: Worsening depression or anxiety Feeling out of control Thoughts of harming yourself or another Being unable to care for yourself Diazepam Oral tablet What is this medicine? DIAZEPAM (dye AZ e chad) is a benzodiazepine. It is used to treat anxiety and nervousness. It also can help treat alcohol withdrawal, relax muscles, and treat certain types of seizures. How should I use this medicine? Take this medicine by mouth with a glass of water. Follow the directions on the prescription label. If this medicine upsets your stomach, take it with food or milk. Take your doses at regular intervals. Do not take your medicine more often than directed. If you have been taking this medicine regularly for some time, do not suddenly stop taking it. You must gradually reduce the dose or you may get severe side effects. Ask your doctor or health pediatric critical care nurse for advice. Even after you stop taking this medicine it can still affect your body for several days. Talk to your doctor of audiology regarding the use of this medicine in children. Special care may be needed. What side effects may I notice from receiving this medicine? Side effects that you should report to your doctor or health pediatric critical care nurse as soon as possible: allergic reactions like skin rash, itching or hives, swelling of the face, lips, or tongue angry, confused, depressed, other mood changes breathing problems feeling faint or lightheaded, falls muscle cramps problems with balance, talking, walking restlessness tremors trouble passing urine or change in the amount of urine unusually weak or tired Side effects that usually do not require medical attention (report to your doctor or health pediatric critical care nurse if they continue or are bothersome): difficulty sleeping, nightmares dizziness, drowsiness, clumsiness, or unsteadiness, a hangover effect headache nausea, vomiting What may interact with this medicine? cimetidine grapefruit juice herbal or dietary supplements like kava kava, melatonin, Jonatan's Wort, or valerian medicines for anxiety or sleeping problems, like alprazolam, lorazepam, or triazolam medicines for depression, mental problems or psychiatric disturbances medicines for HIV infection or AIDS prescription pain medicines rifampin, rifapentine, or rifabutin some medicines for seizures like carbamazepine, phenobarbital, phenytoin, or primidone What if I miss a dose? If you miss a dose, take it as soon as you can. If it is almost time for your next dose, take only that dose. Do not take double or extra doses. Where should I keep my medicine? Keep out of the reach of children. This medicine can be abused. Keep your medicine in a safe place to protect it from theft. Do not share this medicine with anyone. Selling or giving away this medicine is dangerous and against the law. Store at room temperature between 15 and 30 degrees C (59 and 86 degrees F). Protect from light. Keep container tightly closed. Throw away any unused medicine after the expiration date. What should I tell my health care provider before I take this medicine? They need to know if you have any of these conditions an alcohol or drug abuse problem bipolar disorder, depression, psychosis or other mental health condition glaucoma kidney or liver disease lung or breathing disease myasthenia gravis Parkinson's disease seizures or a history of seizures suicidal thoughts an unusual or allergic reaction to diazepam, other benzodiazepines, foods, dyes, or preservatives or trying to get breast-feeding What should I watch for while using this medicine? Visit your doctor or health pediatric critical care nurse for regular checks on your progress. Your body can become dependent on this medicine. Ask your doctor or health pediatric critical care nurse if you still need to take it. You may get drowsy or dizzy. Do not drive, use machinery, or do anything that needs mental alertness until you know how this medicine affects you. To reduce the risk of dizzy and fainting spells, do not stand or sit up quickly, especially if you are an older patient. Alcohol may increase dizziness and drowsiness. Avoid alcoholic drinks. Do not treat yourself for coughs, colds or allergies without asking your doctor or health pediatric critical care nurse for advice. Some ingredients can increase possible side effects. You have been given the following additional information: Alcohol Withdrawal Drug Abuse Hypertension, To Be Confirmed Adjustment Disorder Diazepam Oral tablet (Electronically signed by Yuniel Flores Dr. 02/11/2017 16:35)
--- NOTE | 2017-02-11 16:36 | ED MAR SUMMARY ---
..... Medication Administration Record [facility] [address] [place] [address] Patient: LISA ARELLANO Visit ID: [id number] 36y, M Weight: 92.9 kg Height/Length: 70 in BMI: 29.4 ALLERGIES: Flu Shot, Librium Given 10:25 02/07/2017 Modesta Smith RRadhames Medication Administered: VALIUM [PO] (DIAZEPAM), Dose: 10 mg Tablets PO. Medication Ordered: Valium PO 10 mg (HIGH ALERT MEDICATION, NOW). Given 14:14 02/07/2017 Modesta Smith R.NMary Medication Administered: VALIUM [PO] (DIAZEPAM), Dose: 10 mg Tablets PO. Medication Ordered: Valium PO 10 mg (HIGH ALERT MEDICATION, NOW). Given 17:40 02/07/2017 Modesta Smith RMaryNMary Medication Administered: VALIUM [PO] (DIAZEPAM), Dose: 10 mg Tablets PO. Medication Ordered: Valium PO 10 mg (HIGH ALERT MEDICATION, NOW).
--- NOTE | 2017-02-11 16:36 | ED MAR SUMMARY ---
..... Medication Administration Record [facility] [address] [place] [address] Patient: LISA ARELLANO Visit ID: [id number] 36y, M Weight: 92.9 kg Height/Length: 70 in BMI: 29.4 ALLERGIES: Flu Shot, Librium Given 10:25 02/07/2017 Modesta Smith RRadhames Medication Administered: VALIUM [PO] (DIAZEPAM), Dose: 10 mg Tablets PO. Medication Ordered: Valium PO 10 mg (HIGH ALERT MEDICATION, NOW). Given 14:14 02/07/2017 Modesta Smith R.NMary Medication Administered: VALIUM [PO] (DIAZEPAM), Dose: 10 mg Tablets PO. Medication Ordered: Valium PO 10 mg (HIGH ALERT MEDICATION, NOW). Given 17:40 02/07/2017 Modesta Smith RMaryNMary Medication Administered: VALIUM [PO] (DIAZEPAM), Dose: 10 mg Tablets PO. Medication Ordered: Valium PO 10 mg (HIGH ALERT MEDICATION, NOW).
--- NOTE | 2017-02-11 16:36 | ED MED RECONCILIATION SUMMARY ---
Patient: LISA ARELLANO Medication Reconciliation Report [facility] VisitID: [id number] [address] [place] [address] 36y, M Registration Date/Time: 02/07/2017 Weight: 92.9 kg Height/Length: 70 in. BMI: 29.4 ALLERGIES: Flu Shot, Librium The patient's Home Medications are listed below: NONE. The source(s) of the original Home Medication information: Not obtained. The following Medications were given to the patient in the Emergency Department: Valium [PO] PO 10 mg, administered: 02/07/2017 10:25:00 AM Valium [PO] PO 10 mg, administered: 02/07/2017 2:14:00 PM Valium [PO] PO 10 mg, administered: 02/07/2017 5:40:00 PM The following Medications were prescribed to the patient: Valium 5 mg: take 1 orally every 8 hours for 2 days. No refill. Substitution is permissible.(symptoms of alcohol withdrawal. Disp 6 tabs.) -- Yuniel Flores Dr.
--- NOTE | 2017-02-11 16:36 | ED MED RECONCILIATION SUMMARY ---
Patient: LISA ARELLANO Medication Reconciliation Report [facility] VisitID: [id number] [address] [place] [address] 36y, M Registration Date/Time: 02/07/2017 Weight: 92.9 kg Height/Length: 70 in. BMI: 29.4 ALLERGIES: Flu Shot, Librium The patient's Home Medications are listed below: NONE. The source(s) of the original Home Medication information: Not obtained. The following Medications were given to the patient in the Emergency Department: Valium [PO] PO 10 mg, administered: 02/07/2017 10:25:00 AM Valium [PO] PO 10 mg, administered: 02/07/2017 2:14:00 PM Valium [PO] PO 10 mg, administered: 02/07/2017 5:40:00 PM The following Medications were prescribed to the patient: Valium 5 mg: take 1 orally every 8 hours for 2 days. No refill. Substitution is permissible.(symptoms of alcohol withdrawal. Disp 6 tabs.) -- Yuniel Flores Dr.
== END 2017-02-07 19:16 ==
LOC: ED SRH 09:57
DX: F10.10 Alcohol abuse, uncomplicated (principal); F43.21 Adjustment disorder with depressed mood; R45.851 Suicidal ideations; I10 Essential (primary) hypertension; Y90.6 Blood alcohol level of 120-199 mg/100 ml
CPT/HCPCS: 90004; 90100; 92010; 92760; 92761; 92762; 92763; 92764; 92765; 92766; 92767; 92780; 94060; 95059; 97000